=== PATIENT | female | born 1940 | race Caucasian/White ===

== ENCOUNTER 2016-05-16 10:21 | Inpatient (IN) ==
[2016-05-16] MEDS ORDERED: OSELTAMIVIR 75 MG CAPSULE PO STA (10:36)
[2016-05-16] MEDS ORDERED: MEROPENEM 1,000 MG in SODIUM CHLORIDE 0.9% 100 ML IV STA (10:36)
[2016-05-16] MEDS ORDERED: SODIUM CHLORIDE 0.9% 1,000 ML IV STA ×2 (10:36→10:41)
[2016-05-16] MEDS ORDERED: NOREPINEPHRINE 4 MG/4 ML VIAL IV ONE ×2 (10:43→10:46)
[2016-05-16] MEDS ORDERED: OSELTAMIVIR 75 MG CAPSULE ONE (10:49)
[2016-05-16] MEDS ORDERED: MEROPENEM 1,000 MG VIAL IV ONE (10:49)
[2016-05-16] MEDS ORDERED: VANCOMYCIN INJ 750 MG in SODIUM CHLORIDE 0.9% 250 ML IV STA (10:52)
[2016-05-16] MEDS ORDERED: INSULIN REGULAR 100 UNIT/ML IV STA (11:00)
[2016-05-16] MEDS ORDERED: NOREPINEPHRINE 8 MG in SODIUM CHLORIDE 0.9% 242 ML IV SCH (11:00)
--- NOTE | 2016-05-16 11:03 | Emergency Department Note ---
Brando Oneil Jamie, am scribing for, and in the presence of, Apollo Quinonez MD 10:38. Cristiano Oneil Doug C, MD, personally performed the services described in this documentation, ascribed by Kd Michaels in my presence, and it is both accurate and complete . Arrival - Arrival Stated Complaint: SEPTIC/SVT Limitations: No Limitations Source: Patient, EMS, RN Notes Reviewed Time Seen by Provider: 05/16/16 10:36 - History of Present Illness HPI Narrative: Patient 75-year-old white female record and her developed a febrile illness beginning at the end of last week. Patient became increasingly weak and her stated she could not get up and walk this morning when he tried to take her to the emergency room. He called an ambulance and she was taken to [facility] where she was found to have influenza type A positive strep test as well. Patient was hypotensive and tachycardic. He was found to have atrial fib with rapid ventricular response. Patient is still hypotensive and required pressor. Her states she has had a few episodes of nausea and vomiting but has not seen any blood in her stool and she has not had melena. He states no one else at home was been ill that she goes with him to dialysis and sits in the waiting room for 4 hours at a time and thinks he may have contracted her influenza there. Patient is awake and alert and able to provide little in the way of history. Consistency: constant Severity: moderate Allergies/Adverse Reactions: Allergies Allergy/AdvReac Type Severity Reaction Status Date / Time No Known Allergies Allergy Unverified 05/16/16 10:39 Review of System - Review of System 12 point system: reviewed and no additional remarkable complaints except as stated - Review of System Constitutional: Present: fever, weakness Eyes: Absent: vision change Cardiovascular: Absent: chest pain Gastrointestinal: Present: nausea, vomiting. Absent: abdominal pain, diarrhea, constipation Musculoskeletal: Absent: joint swelling Skin: Absent: rash, change in color Neurological: Absent: headache, weakness, numbness, confusion Hematological/Lymphatic: Absent: easy bleeding, easy bruising Medical,Surgical,& Family Hx - Medical History Hematology: History of: Hematologic Cancer (Patient with history of non-Hodgkin' s lymphoma) - Surgical History Surgical History: noncontributory - Family History Family History: noncontributory Exam Vital Signs: Vital Signs Temperature 101 F H 05/16/16 10:59 Pulse Rate 103 H 05/16/16 10:59 Respiratory Rate 20 05/16/16 10:59 Blood Pressure 77/40 05/16/16 10:59 O2 Sat by Pulse Oximetry 92 L 05/16/16 10:56 - General General appearance: in no apparent distress, other (Patient is slow to respond and unable to provide any reliable history.) - Head Head exam: Present: atraumatic, normocephalic, normal inspection - Eye Eye exam: Present: normal appearance, PERRL, EOMI - ENT ENT exam: Present: mucous membranes moist. Absent: normal exam (Posterior pharyngeal erythema) - Neck Neck exam: Present: normal inspection, full ROM. Absent: meningismus - Chest Chest inspection: Present: normal inspection, symmetric chest wall rise - Respiratory Respiratory exam: Present: normal lung sounds bilaterally. Absent: rales - Cardiovascular Cardiovascular exam: Present: normal rhythm, normal heart sounds. Absent: regular rate (Rapid) - Abdominal Exam Abdominal exam: Present: soft, normal bowel sounds. Absent: tenderness - Extremities Exam Extremities exam: Present: normal inspection, full ROM - Neurological Exam Neurological exam: Present: alert, oriented X3, CN II-XII intact, reflexes normal. Absent: motor sensory deficit - Psychiatric Psychiatric exam: Present: normal affect, normal mood - Skin Skin exam: Present: warm, dry, intact, normal color Course Course Narrative: Patient's clinical presentation, laboratory and radiographic findings were discussed with Taryn who is covering the hospitalist service. Patient was seen in the emergency room and evaluated for admission. Low-dose Levophed will be begun. Broad-spectrum antibiotics will be added. Her is aware of her critical condition. Results - Labs Lab Results: I have reviewed the patients labs (Patient's laboratory studies from [facility] were reviewed.) - EKG EKG results: interpreted by CLAUDINED EKG shows: atrial fibrillation (With rapid ventricular response) - Diagnostic Findings Procedure: Chest x-ray: report reviewed by me (Left lower lobe infiltrate noted. ) Disposition Clinical Impression: Influenza, UTI (urinary tract infection), Sepsis Case discussed with: patient, patient's family Disposition: Still a Patient Condition: Critical Time of Disposition: 10:51 Sepsis - Sepsis Classification of Sepsis: Septic Shock - Physical Exam Respiratory exam: rales (Left base) Capillary Refill: Greater Than 3 Seconds Peripheral pulses: Radial (L): 1+, Radial (R): 1+ Cardiovascular exam: tachycardia
[2016-05-16] MEDS ORDERED: INSULIN REGULAR 100 UNIT/ML ONE (11:07)
--- NOTE | 2016-05-16 11:23 | Hospitalist History & Physical ---
Assessment and Plan - Time spent with patient Time spent with patient: Less than 30 minutes (1) Influenza Status: Acute Assessment and plan: We will admit to ICU and initiate isolation precautions. We will start Krupa-flu and provide voulme replacement. Current Visit: Yes (2) UTI (urinary tract infection) Status: Acute Assessment and plan: Continue broad spectrum antibiotic coverage until urine culture results are available. Current Visit: Yes (3) Sepsis Status: Acute Assessment and plan: We will start fluid resusitation for hypotension. Will start pressors in needed. Will repeat labs and CXR in AM. Current Visit: Yes History of Present Illness Chief complaint: "fever, chills, and generalized weakness" History of present illness: This is poor unfortunate elderly female with a very significant past medical history of Non-Hodgkin's Lymphoma, hypertension, and dislipidemia that presents as a lateral transfer from [facility]. She presented to [facility] this morning with a chief complaint of fever, chills, and generalized weakness since Tuesday. When she presented to [facility], she was found to be febrile at 102.0 and in atrial fibrillation with RVR with a heart rate in the 180's. In addition, she was grossly hypotensive with a SBP in the mid-80's. She was given fluid boluses and Amiodarone for rate control. Influenza and strep cultures were obtained; which were both positive. She responded initially to the additional volume, however hypotension returned. She was then transferred to [facility] for continuation of care. Home Medications Medication Instructions Recorded Confirmed Type Canagliflozin [Invokana] 100 mg PO DAILY 05/16/16 05/16/16 History Ferrous Sulfate Tab [Feosol 325 mg PO TID 05/16/16 05/16/16 History Original Tab] Fexofenadine [Ramya] 180 mg PO DAILY PRN 05/16/16 05/16/16 History Folic Acid Tab 1 mg PO BID 05/16/16 05/16/16 History Ibuprofen Tab [Motrin Tab] 600 mg PO Q6H PRN 05/16/16 05/16/16 History Irbesartan 300 mg PO DAILY 05/16/16 05/16/16 History Metformin HCl 1,000 mg PO BID 05/16/16 05/16/16 History Metoprolol Succinate Xl [Toprol Xl] 50 mg PO DAILY 05/16/16 05/16/16 History Multivitamin (Centrum) [Centrum 1 tablet PO DAILY 05/16/16 05/16/16 History Tab] Pioglitazone HCl 15 mg PO DAILY 05/16/16 05/16/16 History Allergies Allergy/AdvReac Type Severity Reaction Status Date / Time No Known Allergies Allergy Unverified 05/16/16 10:39 Medical,Surgical,& Family Hx - Medical History Cardio: History of: Hypertension Endocrine: History of: Dyslipidemia Hematology: History of: Hematologic Cancer (Patient with history of non-Hodgkin' s lymphoma) - Social History Smoking Status: Never smoker Have you smoked in the last 12 months: No Frequency of Alcohol Use: None Type of Drug Use: None Marital Status: Single Lives With:: Spouse Functional capacity: independent ambulation 12 point system: reviewed and no additional remarkable complaints except as stated Exam - Constitutional Vitals: Period Temp Pulse Resp BP Sys/Li Pulse Ox Last 24 Hr 101 F 103-127 16-20 77-77/40-40 92 General appearance: mild distress - Head Head exam: Present: normal inspection, normocephalic, atraumatic - Eye Eye exam: Present: EOMI. Absent: conjunctival injection, scleral icterus, laceration to eyelids Pupils: Present: DANNY, normal accommodation - ENT ENT exam: Present: normal exam - Neck Neck exam: Present: normal inspection. Absent: lymphadenopathy, meningismus, tenderness, thyromegaly - Respiratory Respiratory exam: Present: decreased breath sounds - Cardiovascular Cardiovascular exam: Present: irregular rhythm. Absent: gallop, rubs, systolic murmur, tachycardia - GI/Abdominal GI/Abdominal exam: Present: normal bowel sounds, soft. Absent: distended, firm , tenderness - Extremities Exam Extremities exam: Present: normal inspection - Back Exam Back exam: Present: normal inspection - Neurological Exam Neurological exam: Present: alert, oriented X3, CN II-XII intact - Psychiatric Psychiatric exam: Present: normal affect - Skin Skin exam: Present: dry, pallor Sepsis - Sepsis Classification of Sepsis: Sepsis Possible / Suspected infection from: UTI/Influenza - Physical Exam Respiratory exam: decreased breath sounds Cardiovascular exam: irregular rhythm
[2016-05-16 11:50] LABS: Blood Urea Nitrogen 41 MG/DL (7-18); Glucose 359 MG/DL (74-106); Magnesium 1.5 MG/DL (1.8-2.4); Osmolality,Calculated 311.7 MOS/KG (273-304); Potassium 3.6 MMOL/L (3.5-5.1); Sodium 145 MMOL/L (136-145)
[2016-05-16 11:51] LABS: Troponin I Only 0.386 NG/ML (0.00-0.045)
--- NOTE | 2016-05-16 11:59 | XRay Report ---
Portable chest Date: 05/16/2016 Clinical history: Shortness of breath, fever Comparison: 05/16/2016 Technique: Portable AP sitting chest Findings: The heart is borderline in size. Probably chronic scarring with symmetric pleural thickening at the lung apices. Additional parenchymal findings especially at the right lung base and in the left mid to lower lung zone. Ill-defined densities are noted. Post operative findings in the left upper quadrant with degenerative changes. Osteopenia. Impression: Atelectasis/infiltration especially in the left mid lower lung zone and at the right lung base with chronic scarring. Ill-defined indeterminate densities are noted and follow-up chest x-ray is recommended. PROCEDURE INTERPRETED AT [facility] DEPARTMENT OF RADIOLOGY Final Report Signed by: Dr. Berna Portillo
[2016-05-16] MEDS ORDERED: DEXTROSE 50% 25 GM/50 ML VIAL IV PRN (12:27)
[2016-05-16] MEDS ORDERED: ONDANSETRON 4 MG/2 ML VIAL IV PRN (12:27)
[2016-05-16] MEDS ORDERED: MORPHINE 2 MG/1 ML SYRINGE IV PRN (12:27)
[2016-05-16] MEDS ORDERED: GLUCAGON 1 MG VIAL IM PRN (12:27)
[2016-05-16] MEDS ORDERED: VANCOMYCIN INJ 750 MG in SODIUM CHLORIDE 0.9% 250 ML IV ONE (12:27)
[2016-05-16 12:48] LABS: Risk Ratio 3.33; VLDL CHOLESTEROL 13.8 MG/DL
[2016-05-16] MEDS: ENOXAPARIN 30 MG/0.3 ML SYRINGE SUBCUT SCH (13:08)
[2016-05-16] MEDS: SODIUM CHLORIDE 0.9% 1,000 ML IV SCH (13:10)
[2016-05-16] MEDS: MEROPENEM 500 MG in SODIUM CHLORIDE 0.9% 100 ML IV SCH (13:12)
[2016-05-16] MEDS: NOREPINEPHRINE 8 MG in SODIUM CHLORIDE 0.9% 242 ML IV SCH (13:13)
[2016-05-16] MEDS: INSULIN REGULAR 100 UNIT/ML SUBCUT SCH ×2 (13:35→18:22)
[2016-05-16] MEDS: PANTOPRAZOLE 40 MG VIAL IV SCH (13:37)
[2016-05-16] MEDS ORDERED: VANCOMYCIN INJ 1,000 MG in SODIUM CHLORIDE 0.9% 250 ML IV SCH (14:00)
[2016-05-16] MEDS: ALBUTEROL/IPRATROPIUM 3 ML NEB RESP TX SCH ×2 (14:39→19:54)
[2016-05-16] MEDS ORDERED: POTASSIUM CHLORIDE 20 MEQ/15 ML UDCUP PO ONE (20:51)
[2016-05-16] MEDS ORDERED: MAGNESIUM SULF RIDER 2 GM in PREMIX 1 EACH IV ONE (20:51)
[2016-05-16] MEDS: ACETAMINOPHEN 325 MG/10.15 ML UDCUP PO PRN (21:19)
[2016-05-16] MEDS: OSELTAMIVIR 75 MG CAPSULE PO SCH (21:20)
[2016-05-17] MEDS: ALBUTEROL/IPRATROPIUM 3 ML NEB RESP TX SCH ×4 (00:08→19:59)
[2016-05-17] MEDS: SODIUM CHLORIDE 0.9% 1,000 ML IV SCH ×6 (00:32→22:36)
[2016-05-17] MEDS: INSULIN REGULAR 100 UNIT/ML SUBCUT SCH ×4 (01:29→18:35)
[2016-05-17] MEDS: MEROPENEM 500 MG in SODIUM CHLORIDE 0.9% 100 ML IV SCH ×2 (01:30→14:13)
[2016-05-17] MEDS: NOREPINEPHRINE 8 MG in SODIUM CHLORIDE 0.9% 242 ML IV SCH ×2 (01:47→16:48)
[2016-05-17 03:13] LABS: Apearance,Urine SlightlyCloudy (Clear); Bilirubin,Urine Negative (Negative); Blood, Urine Moderate mg/dL (Negative); Glucose,Urine (UA) 50 mg/dL (Negative); Ketones,Urine Negative (Negative); Nitrite,Urine Negative (Negative); Protein,Urine 100 MG/DL; RBC,Urine 19 /HPF (0-4); Renal Epithelial Cells,Urine Occasional /HPF (<1); Squamous Epithelial Cell,Urine Occasional /HPF (0-10); Urine Color Yellow (Yellow); Urine Specific Gravity 1.005 (1.001-1.035); WBC,Urine 158 /HPF (0-6)
[2016-05-17 03:14] LABS: Urine Urobilinogen < 2.0 EU/DL (0.2-1.0)
[2016-05-17 05:54] LABS: Hemoglobin 9.6 GM/DL (12.0-16.0); Lymphocytes # 0.7 10*3/uL (1.4-4.0); Lymphocytes % 65.7 % (21.3-54.2); Mean Corpuscular Hemoglobin 32 PG (27-34); Mean Corpuscular Volume 98.4 FL (87-102); Mean Platelet Volume 11.3 FL (9.6-12.0); Monocytes # 0.1 10*3/uL (0.11-0.8); Monocytes % 7.1 % (1.7-12.7); NRBC # 0.05 10*3/uL; Neutrophils # 0.3 10*3/uL (1.4-7.4); Neutrophils % 27.2 % (38.7-73.9); Platelet Count 130 T/CUMM (130-400); Red Blood Count 3.05 MC/CUMM (3.8-5.5); Red Cell Distribution Width 15.9 % (9.3-17.3)
[2016-05-17 06:24] LABS: Band Neutrophils 2 % (0-10); Lymphocytes 68 % (20-55); Nucleated Red Blood Cells 10 (0-5); Segmented Neutrophils 22 % (50-85); Total Cells Counted 100
[2016-05-17 06:25] LABS: Hypochromasia 1+
[2016-05-17 06:26] LABS: Burr Cells Few; Macrocytosis Slight; Platelet Estimate Adequate
[2016-05-17 06:36] LABS: Calcium 6.7 MG/DL (8.5-10.1); Magnesium 2.5 MG/DL (1.8-2.4); Osmolality,Calculated 317.4 MOS/KG (273-304); Potassium 3.9 MMOL/L (3.5-5.1); Thyroid Stimulating Hormone 1.36 uIU/ml (0.358-3.74)
[2016-05-17] MEDS: OSELTAMIVIR 75 MG CAPSULE PO SCH ×2 (08:33→21:02)
--- NOTE | 2016-05-17 08:38 | XRay Report ---
History: Shortness of breath Date: 05/17/2016 Study: Chest x-ray AP portable Comparison exam: 05/16/2016 The cardiac silhouette is upper normal in size. There is no mediastinal mass. The pulmonary vasculature is not grossly engorged. There is some patchy and strandy atelectasis/infiltrate in the left mid to lower lung more so than the right lower lung. The left lung infiltrate is slightly increased. There may be some minimal left pleural effusion. Osseous structures are unchanged. Impression: Mildly increased atelectasis/infiltrate in the left mid to lower lung compared to the previous day. Otherwise unchanged PROCEDURE INTERPRETED AT [facility] DEPARTMENT OF RADIOLOGY Final Report Signed by: Dr. Jacqueline Heath
--- NOTE | 2016-05-17 09:34 | Hospitalist Progress Note ---
Assessment and Plan (1) Pneumonia and influenza Status: Acute Assessment and plan: The patient was admitted to the hospital with pneumonia of the left lung superimposed upon influenza. The patient continues on IV antibiotics with meropenem and linezolid. We will recheck electrolytes and chest x-ray in the morning. The patient's diet will advance to diabetic. I am going to add Lantus to the patient's sliding scale insulin to improve glucose control. Current Visit: Yes (2) Influenza Status: Acute Current Visit: Yes (3) Sepsis Status: Acute Current Visit: Yes Hospitalist: Subjective Interval history: This is a 75-year-old lady admitted on Tuesday evening with viral infection and sore throat. The patient was found to have flu swab and streptococcal swab of the throat consistent with influenza a and streptococcal infection. The patient has been having cough with sputum production and fever with generalized body aching consistent with flu. The patient worsened on the date of admission to the hospital was brought to the emergency room. The patient has stabilized and begun to feel better today after an evening of antibiotics with meropenem and vancomycin as well as beta agonist nebulized breathing therapies. Creatinine has increased from 2.1-2.4 saw going to discontinue vancomycin and start the patient on linezolid. Exam - Constitutional Vitals: Period Temp Pulse Resp BP Sys/Li Pulse Ox Last 24 Hr 99.7 F-101.9 F 98-144 8-36 67-156/35-99 81-100 General appearance: mild distress - Respiratory Respiratory exam: Present: rhonchi (Left mid lung field greater than right) - Cardiovascular Cardiovascular exam: Present: regular rate and rhythm - GI/Abdominal GI/Abdominal exam: Present: normal bowel sounds Results - Labs CBC & BMP: 05/17/16 05:18 05/17/16 05:18 Lab Results: I have reviewed the past 24 hour labs - Diagnostic Findings Procedure: Chest x-ray: image reviewed by me (Chest x-ray shows worsening atelectasis of the left lung)
[2016-05-17] MEDS: LINEZOLID INJ 600 MG in PREMIX 1 EACH IV SCH ×2 (11:15→21:02)
[2016-05-17] MEDS: DESITIN 4OZ/NYSTATIN 15 GRAM MIXTURE PASTE TOP SCH ×2 (11:34→21:00)
[2016-05-17] MEDS: PANTOPRAZOLE 40 MG VIAL IV SCH (12:40)
[2016-05-17] MEDS: ENOXAPARIN 30 MG/0.3 ML SYRINGE SUBCUT SCH (14:13)
--- NOTE | 2016-05-17 16:05 | ECHO Report ---
[place] Exam Date: 05/17/2016 09:08 Referring Physician: Technologist: Mikhail FERNANDO Age: 75 Ht (in): Wt (lb): Gender: F Exam Location: [facility] Echo Indications: SOB, Influenza, UTI, Sepsis BP: / HR: Rhythm: Sinus Technical Quality: IMPRESSIONS The patient is tachycardic in the 130-140 range which makes interpretation more challenging. Left ventricular ejection fraction is estimated at approximately 50 %. Mild concentric left ventricular hypertrophy. Mild bilateral atrial enlargement. Mild mitral regurgitation. Mild tricuspid regurgitation. MEASUREMENTS (Male / Female) Normal Values 2D ECHO LV Diastolic Diameter PLAX 3.2 cm 4.2 - 5.9 / 3.9 - 5.3 cm LV Systolic Diameter PLAX 1.8 cm LV Fractional Shortening PLAX 43.2 % IVS Diastolic Thickness 1.1 cm 0.6 - 1.0 / 0.6 - 0.9 cm LVPW Diastolic Thickness 1.1 cm 0.6 - 1.0 / 0.6 - 0.9 cm RV Internal Dim ED PLAX 2.9 cm Aortic Root Diameter 2.2 cm LA Systolic Diameter LX 3.0 cm 3.0 - 4.0 / 2.7 - 3.8 cm DOPPLER TR Peak Velocity 288.0 cm/s TR Peak Gradient 33.2 mmHg FINDINGS Left Ventricle Mild concentric left ventricular hypertrophy with diastolic dysfunction. Left ventricular ejection fraction is estimated at 50 %. Right Ventricle Mildly increased right ventricular size. Right Atrium The right atrium is mildly enlarged. Left Atrium The left atrium is mildly enlarged. Mitral Valve Mildly thickened mitral valve with mild mitral regurgitation. Aortic Valve Aortic valve sclerosis without stenosis or regurgitation. Tricuspid Valve Morphologically normal tricuspid valve. Mild tricuspid valve regurgitation. Tricuspid regurgitation velocities suggest a PAP of 33.2 mmHg + RAP. Pulmonic Valve Morphologically normal pulmonic valve. Pericardium No pericardial effusion. Aorta Normal size aortic root and proximal ascending aorta. Artis Hopson (Electronically Signed) Final Date: 17 May 2016 16:04
[2016-05-17] MEDS: ACETAMINOPHEN 325 MG/10.15 ML UDCUP PO PRN (21:01)
[2016-05-17] MEDS: INSULIN GLARGINE 100 UNIT/ML SUBCUT SCH (21:13)
[2016-05-18] MEDS: ALBUTEROL/IPRATROPIUM 3 ML NEB RESP TX SCH ×4 (02:00→19:55)
[2016-05-18] MEDS: MEROPENEM 500 MG in SODIUM CHLORIDE 0.9% 100 ML IV SCH ×2 (02:23→14:00)
[2016-05-18] MEDS: SODIUM CHLORIDE 0.9% 1,000 ML IV SCH ×4 (04:39→20:27)
[2016-05-18] MEDS: INSULIN REGULAR 100 UNIT/ML SUBCUT SCH ×4 (05:58→17:46)
--- NOTE | 2016-05-18 09:10 | Physician Query Form ---
CLICK EDIT DOCUMENT TO SELECT QUERY ANSWER --> OK --> SIGN Prachi Germain RN, CCDS Certified Clinical Radiation Control Health Physicist W) [phone] (f) [phone] [email or web address] PROVIDERS: Make your selection(s) from the choices in EACH section by typing an "x" and enter comments in the comment section. Please use your independent medical judgment in providing your response. This request does not imply that any particular answer is desired or expected. CLINICAL INDICATORS: (Providers should not edit this section) The below diagnosis was documented in the record, but is not consistently noted in subsequent documentation. The medical record indicates that the patient was admitted with Sepsis, UTI is mentioned in the ER, Urine WBC of 158#, Urine Leukocytes "Moderate" and the patient is on antibiotics. In your clinical opinion can you please clarify if the UTI was ? Diagnosis: UTI Please clarify the following: ( ) The above diagnosis was monitored, evaluated, and/or treated and is a confirmed diagnosis ( X) The above diagnosis was ruled out ( ) The above diagnosis is still a likely, suspected, probable diagnosis ( ) Other, please specify: ( ) Clinically unable to determine COMMENTS: Use of terms such as suspected, likely, or probable (associated with a specific diagnosis that is being evaluated, monitored, or treated as if it exists) are acceptable and can be restated in the discharge summary if not ruled out. MTDD
--- NOTE | 2016-05-18 09:11 | Physician Query Form ---
CLICK EDIT DOCUMENT TO SELECT QUERY ANSWER --> OK --> SIGN Prachi Germain RN, CCDS Certified Clinical Tipple Worker W) [phone] (f) [phone] [email or web address] PROVIDERS: Make your selection(s) from the choices in EACH section by typing an "x" and enter comments in the comment section. Please use your independent medical judgment in providing your response. This request does not imply that any particular answer is desired or expected. CLINICAL INDICATORS: (Providers should not edit this section) The medical record indicates that the patient was admitted with Sepsis, on the : creatinine of 2.10# that has increased to 2.40# on the and GFR of 21 # that has decreased to 19# on the . [also "going to discontinue vancomycin and start the patient on linezolid"] Clarify which of the following most accurately represents the patient's renal status: ( ) Acute kidney injury (non-traumatic) ( ) Acute renal failure ( ) Acute renal failure with underlying Chronic Kidney Disease (CKD) - please provide stage below ( ) Acute renal failure with pathological renal lesion ( ) Acute renal failure with necrosis ( ) tubular ( ) medullary ( ) cortical ( ) CKD - please provide stage below ( ) End Stage Renal Disease ( ) Acute interstitial nephritis ( ) Hepatorenal syndrome ( ) Other, please specify: ( ) Clinically unable to determine Chronic Kidney Disease Stages Source: National Kidney Disease Foundation ( ) Stage I (eGFR > or = 90) ( ) Stage II (eGFR 60 - 89) ( ) Stage III (eGFR 30 - 59) ( ) Stage IV (eGFR 15 - 29) ( ) Stage V (eGFR < 15 or dialysis) COMMENTS: Use of terms such as suspected, likely, or probable (associated with a specific diagnosis that is being evaluated, monitored, or treated as if it exists) are acceptable and can be restated in the discharge summary if not ruled out. MTDD
[2016-05-18] MEDS: DESITIN 4OZ/NYSTATIN 15 GRAM MIXTURE PASTE TOP SCH ×2 (09:18→20:11)
[2016-05-18] MEDS: OSELTAMIVIR 75 MG CAPSULE PO SCH ×2 (09:18→20:08)
[2016-05-18] MEDS: LINEZOLID INJ 600 MG in PREMIX 1 EACH IV SCH ×2 (10:15→21:17)
[2016-05-18] MEDS: PANTOPRAZOLE 40 MG VIAL IV SCH (12:43)
[2016-05-18] MEDS: ENOXAPARIN 30 MG/0.3 ML SYRINGE SUBCUT SCH (12:43)
--- NOTE | 2016-05-18 14:30 | Hospitalist Progress Note ---
Assessment and Plan - Time spent with patient Time spent with patient: Greater than 30 minutes (1) Pneumonia and influenza Status: Acute Assessment and plan: will get CT chest to further evaluate abnormal x-ray. Continue with linezolid and meropenem. May need to consult Pulmonary. Current Visit: Yes (2) Septic shock Status: Acute Assessment and plan: the patient was on vasopressor up to yesterday. Source of infection likely from pneumonia. Off pressors now. Current Visit: Yes (3) Influenza Status: Acute Assessment and plan: Continue with Tamiflu for 5 days Current Visit: Yes (4) Neutropenia Status: Acute Assessment and plan: repeat complete blood count and if neutrophils still significantly lower than 0.5 L, consider Neupogen, and then consider neutropenic precautions Current Visit: Yes (5) Thrombocytopenia Status: Acute Assessment and plan: likely secondary to sepsis. Discontinue Lovenox. No bleeding episode. Current Visit: Yes Hospitalist: Subjective Interval history: Patient seen and examined. Neutropenia of 0.3 noted. White count of 1 yesterday noted. It seems patient must have had neutropenic fever. She was actually in septic shock considering that she was on Levophed up to yesterday. Chest x-ray revealed possible left lower lobe infiltrate concerning for pneumonia. We are going to get CAT scan without contrast to further evaluate. She has organ dysfunction dysfunction with elevated creatinine. She is being treated for flu. Get urine legionella and urine strep antigen. She is on adequate antibiotics with linezolid and meropenem. Blood cultures have remained negative. Will send for sputum culture. Will likely consult ID, hematology when all these are back jessica if WBC remains very low Exam - Constitutional Vitals: Period Temp Pulse Resp BP Sys/Li Pulse Ox Last 24 Hr 98.3 F-100.5 F 80-148 18-31 67-135/39-90 90-100 General appearance: no normal weight - Head Head exam: Present: normocephalic, atraumatic - Eye Eye exam: Present: EOMI Pupils: Present: DANNY - Respiratory Respiratory exam: Present: rhonchi (Bilateral rhonchi) - Cardiovascular Cardiovascular exam: Absent: diastolic murmur, JVD, systolic murmur - GI/Abdominal GI/Abdominal exam: Present: normal bowel sounds. Absent: ascites - Extremities Exam Extremities exam: Absent: normal capillary refill, edema - Neurological Exam Neurological exam: Present: alert, oriented X3 - Psychiatric Psychiatric exam: Present: normal affect - Skin Skin exam: Present: normal color Results - Labs CBC & BMP: 05/18/16 14:29 05/17/16 05:18 Lab Results: I have reviewed the past 24 hour labs
[2016-05-18 14:44] LABS: Basophils % 0.4 % (0.0-0.8); Eosinophils % 0.4 % (0.00-10.9); Hematocrit 22.6 VOL% (35.7-47.0); Hemoglobin 7.5 GM/DL (12.0-16.0); Immature Granulocytes Absolute 0.05 #; Lymphocytes # 0.6 10*3/uL (1.4-4.0); Lymphocytes % 23.1 % (21.3-54.2); Mean Corpuscular HGB Conc 33.2 GM/DL (32-36); Mean Corpuscular Hemoglobin 31 PG (27-34); Mean Corpuscular Volume 94.6 FL (87-102); Mean Platelet Volume 11.9 FL (9.6-12.0); Monocytes # 0.2 10*3/uL (0.11-0.8); Monocytes % 7.5 % (1.7-12.7); NRBC # 0.41 10*3/uL; Neutrophils # 1.7 10*3/uL (1.4-7.4); Neutrophils % 66.6 % (38.7-73.9); Platelet Count 63 T/CUMM (130-400); Red Blood Count 2.39 MC/CUMM (3.8-5.5); Red Cell Distribution Width 16.6 % (9.3-17.3); White Blood Count 2.6 T/CUMM (4-12)
[2016-05-18] MEDS: NOREPINEPHRINE 8 MG in SODIUM CHLORIDE 0.9% 242 ML IV SCH (14:44)
[2016-05-18 15:19] LABS: Band Neutrophils 1 % (0-10); Lymphocytes 37 % (20-55); Metamyelocytes 1 %; Nucleated Red Blood Cells 12 (0-5); Segmented Neutrophils 54 % (50-85); Total Cells Counted 100
[2016-05-18 15:20] LABS: Platelet Estimate Decreased; Polychromasia Few
--- NOTE | 2016-05-18 15:38 | CT Report ---
Referring physician: Tanner Mills MD EXAM: CT chest without contrast DATE: 05/18/2016 COMPARISON: Chest x-ray 05/17/2016 REASON: Shortness of breath, evaluate for pneumonia TECHNIQUE: Axial images of the chest were obtained without the use of IV contrast. Coronal and sagittal reformatted images were also provided. Total DLP is 156.10 mGy*cm. FINDINGS: The heart is minimally enlarged with diffuse arterial calcifications including coronary artery calcifications. Limited evaluation of the vasculature and no without contrast. At least some of the nodes may be enlarged. 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 Probable vascular calculations in the area the pancreas with limited evaluation of the upper abdomen. Small bilateral pleural effusions with diffuse pleural calcification posteriorly in the right hemithorax. Chronic scarring at the lung apices. More extensive dense consolidation in the lower lobes, especially the left. Additional multifocal groundglass opacities in the left upper lobe/lingula with minimal atelectasis/infiltration right upper lobe and right middle lobe. There is fluid in the fissures. IMPRESSION: Findings which can be seen with bilateral pneumonia especially in the lower lobes with small pleural effusions. It is difficult to exclude underlying pathology/masses with these findings. Small loculated appearing pleural effusions. Diffuse pleural calcifications posteriorly in the right hemithorax which can be seen with scarring, asbestosis, etc. At least minimal ascites with prior splenectomy and limited evaluation of the upper abdomen. Minimal cardiomegaly with coronary artery calcifications. Follow-up recommended. The CT exam was performed using one or more of the following dose reduction techniques: Automated exposure control and adjustment of the mA and/or kV according to patient size. PROCEDURE INTERPRETED AT [facility] DEPARTMENT OF RADIOLOGY Final Report Signed by: Dr. Berna Portillo
[2016-05-18] MEDS: INSULIN GLARGINE 100 UNIT/ML SUBCUT SCH (20:11)
[2016-05-18] MEDS: ACETAMINOPHEN 325 MG/10.15 ML UDCUP PO PRN (22:02)
--- NOTE | 2016-05-18 22:11 | EKG Report ---
Stationary ECG Study 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
[2016-05-18] MEDS: DILTIAZEM INJ 100 MG in SODIUM CHLORIDE 0.9% 100 ML IV SCH (22:15)
[2016-05-19] MEDS: INSULIN REGULAR 100 UNIT/ML SUBCUT SCH ×4 (00:09→18:51)
[2016-05-19] MEDS: ALBUTEROL/IPRATROPIUM 3 ML NEB RESP TX SCH ×4 (00:33→19:53)
[2016-05-19] MEDS: SODIUM CHLORIDE 0.9% 1,000 ML IV SCH ×3 (00:47→23:05)
[2016-05-19] MEDS: MEROPENEM 500 MG in SODIUM CHLORIDE 0.9% 100 ML IV SCH ×2 (02:11→13:53)
[2016-05-19 08:56] LABS: Eosinophils # 0.1 10*3/uL (0.0-0.87); Eosinophils % 2.6 % (0.00-10.9); Hematocrit 22.2 VOL% (35.7-47.0); Hemoglobin 7.5 GM/DL (12.0-16.0); Immature Granulocytes % 5.3 %; Immature Granulocytes Absolute 0.12 #; Lymphocytes # 0.5 10*3/uL (1.4-4.0); Lymphocytes % 19.7 % (21.3-54.2); Mean Corpuscular HGB Conc 33.8 GM/DL (32-36); Mean Corpuscular Hemoglobin 31 PG (27-34); Mean Corpuscular Volume 92.9 FL (87-102); Mean Platelet Volume 12.5 FL (9.6-12.0); Monocytes # 0.1 10*3/uL (0.11-0.8); Monocytes % 6.1 % (1.7-12.7); NRBC # 0.36 10*3/uL; Neutrophils # 1.5 10*3/uL (1.4-7.4); Neutrophils % 66.3 % (38.7-73.9); Red Blood Count 2.39 MC/CUMM (3.8-5.5); Red Cell Distribution Width 16.4 % (9.3-17.3); White Blood Count 2.3 T/CUMM (4-12)
[2016-05-19 08:57] LABS: Platelet Count 58 T/CUMM (130-400)
[2016-05-19 09:19] LABS: Band Neutrophils 18 % (0-10); Hypochromasia 1+; Lymphocytes 12 % (20-55); Nucleated Red Blood Cells 4 (0-5); Platelet Estimate Decreased; Segmented Neutrophils 66 % (50-85); Total Cells Counted 100
[2016-05-19 09:20] LABS: Calcium 6.4 MG/DL (8.5-10.1); Magnesium 1.9 MG/DL (1.8-2.4); Osmolality,Calculated 305.6 MOS/KG (273-304); Potassium 3.1 MMOL/L (3.5-5.1)
[2016-05-19] MEDS: LINEZOLID INJ 600 MG in PREMIX 1 EACH IV SCH ×2 (11:13→23:00)
--- NOTE | 2016-05-19 12:45 | Hospitalist Progress Note ---
Assessment and Plan (1) Pneumonia and influenza Status: Acute Assessment and plan: will get CT chest to further evaluate abnormal x-ray. Continue with linezolid and meropenem. May need to consult Pulmonary. Current Visit: Yes (2) Septic shock Status: Acute Assessment and plan: the patient was on vasopressor up to yesterday. Source of infection likely from pneumonia. Off pressors now. Current Visit: Yes (3) Influenza Status: Acute Assessment and plan: Continue with Tamiflu for 5 days Current Visit: Yes (4) Neutropenia Status: Acute Assessment and plan: repeat complete blood count and if neutrophils still significantly lower than 0.5 L, consider Neupogen, and then consider neutropenic precautions Current Visit: Yes (5) Thrombocytopenia Status: Acute Assessment and plan: likely secondary to sepsis. Discontinue Lovenox. No bleeding episode. Current Visit: Yes Hospitalist: Subjective Interval history: Patient was seen and examined. Brushing her teeth in bed Clinically she looks better. She is still coughing. Reviewed results of patient's CT scan report and labs Denies chest pain or shortness of breath. I have consulted infectious disease and hematology. Exam - Constitutional Vitals: Period Temp Pulse Resp BP Sys/Li Pulse Ox Last 24 Hr 98.5 F-100.0 F 89-139 16-33 83-162/50-88 89-98 Results - Labs CBC & BMP: 05/19/16 08:38 05/19/16 08:38
[2016-05-19] MEDS: PANTOPRAZOLE 40 MG VIAL IV SCH (13:48)
[2016-05-19] MEDS: DESITIN 4OZ/NYSTATIN 15 GRAM MIXTURE PASTE TOP SCH ×2 (14:01→22:00)
[2016-05-19] MEDS ORDERED: SODIUM CHLORIDE 0.9% 250 ML IV PRN (17:16)
--- NOTE | 2016-05-19 17:19 | Hematology Consult ---
Assessment and Plan (1) Pancytopenia Status: Acute Assessment and plan: Her pancytopenia appears to be related to sepsis. I will order a full DIC panel and also check B12 and folate levels. She has not had a liver function panel checked since she has been admitted so I will add this to her labs. We will give her 2 units of blood today since her hemoglobin is less than 8 and she is still fairly symptomatically requiring supplemental oxygen. She needs to watch closely for volume overload. I'll also give her a dose of Neupogen to see if we can increase her neutrophil count. At this point the only treatment to be done is to treat the underlying illness. She is on Zyvox and Merrem. I will be out of town the next 4 days but if there is any questions from a hematology standpoint please feel free to call the on-call utility worker. Current Visit: Yes (2) Pneumonia and influenza Status: Acute Current Visit: Yes (3) Sepsis Status: Acute Current Visit: Yes (4) Septic shock Status: Acute Current Visit: Yes History of Present Illness - Consult Narrative History of present illness: Ms. Aragon is a 75 year old female who was admitted with bilateral pneumonia and what appeared to be sepsis. She was hypotensive for quite a while. She was pancytopenic on admission. Her neutrophil count has improved some but her platelet counts have decreased further. Her neutrophil count remains above 1000 today. Her hemoglobin is around 7.5. She is covered with Zyvox and Merrem. Her cultures are no growth. It appears that her pancytopenia is most likely secondary to her sepsis. CC: Tanner Mills MD - Home Medications and Allergies Home Medications: Home Medications Medication Instructions Recorded Confirmed Type Canagliflozin [Invokana] 100 mg PO DAILY 05/16/16 05/16/16 History Ferrous Sulfate Tab [Feosol 325 mg PO TID 05/16/16 05/16/16 History Original Tab] Fexofenadine [Ramya] 180 mg PO DAILY PRN 05/16/16 05/16/16 History Folic Acid Tab 1 mg PO BID 05/16/16 05/16/16 History Ibuprofen Tab [Motrin Tab] 600 mg PO Q6H PRN 05/16/16 05/16/16 History Irbesartan 300 mg PO DAILY 05/16/16 05/16/16 History Metformin HCl 1,000 mg PO BID 05/16/16 05/16/16 History Metoprolol Succinate Xl [Toprol Xl] 50 mg PO DAILY 05/16/16 05/16/16 History Multivitamin (Centrum) [Centrum 1 tablet PO DAILY 05/16/16 05/16/16 History Tab] Pioglitazone HCl 15 mg PO DAILY 05/16/16 05/16/16 History Allergies/Adverse Reactions: Allergies Allergy/AdvReac Type Severity Reaction Status Date / Time No Known Allergies Allergy Unverified 05/16/16 10:39 Medical,Surgical,& Family Hx - Medical History Cardio: History of: Hypertension HEENT: History of: Dental Problems (HAVE UPPER DENTAL IMPLANTS) Endocrine: History of: Dyslipidemia Respiratory: History of: Bronchitis, Pneumonia Genitourinary: History of: Recurring Urinary Tract Infections Musculoskeletal: No history of: Amputation Hematology: History of: Hematologic Cancer (Patient with history of non-Hodgkin' s lymphoma) Other: History of: Cancer - Surgical History Abdominal Surgeries: Patient denies: Abdominal Surgery - Family History Family History: Reports;: Family Heart Disease (FATHER AND MOTHER) - Social History Smoking Status: Never smoker Frequency of Alcohol Use: None Type of Drug Use: None 12 point system: reviewed and no additional remarkable complaints except as stated - Constitutional Constitutional: Present: fatigue, malaise - Cardiovascular Cardiovascular ROS IM: Absent: edema, palpitations - Respiratory Respiratory: Present: dyspnea - Gastrointestinal Gastrointestinal: Absent: nausea Exam - Constitutional Vitals: Period Temp Pulse Resp BP Sys/Li Pulse Ox Last 24 Hr 98.5 F-99.8 F 89-139 22-33 83-162/57-88 89-98 General appearance: mild distress - Head Head Exam: Present: normocephalic, atraumatic - Eye Eye Exam: Present: EOMI Pupils: Present: PERRL - ENT ENT exam: Present: normal exam, normal oropharynx - Neck Neck exam: Absent: lymphadenopathy, thyromegaly - Respiratory Respiratory exam: Present: CTAB. Absent: decreased breath sounds, wheezes - Cardiovascular Cardiovascular exam: Present: tachycardia. Absent: JVD, RRR - GI/Abdominal GI/Abdominal exam: Present: soft. Absent: ascites, distended, mass - Neurological Exam Neurological exam: Present: alert, oriented X3 - Psychiatric Psychiatric exam: Present: normal affect, anxious - Skin Skin exam: Present: warm, dry Results - Labs CBC & BMP: 05/19/16 08:38 05/19/16 08:38 Lab Results: I have reviewed the past 24 hour labs - Diagnostic Findings Procedure: CT - chest: report reviewed by me
[2016-05-19] MEDS ORDERED: FUROSEMIDE 40 MG/4 ML VIAL IV ONE (17:26)
[2016-05-19 17:57] LABS: PT Patient Result 11.1 SECS
[2016-05-19] MEDS ORDERED: FILGRASTIM-SNDZ 300 MCG/0.5 ML SYRINGE SUBCUT ONE (18:00)
[2016-05-19 18:11] LABS: Bilirubin,Direct 0.2 MG/DL (0.0-0.20); Bilirubin,Indirect 0.5 MG/DL (0.0-1.0); Bilirubin,Total 0.7 MG/DL (0.2-1.0); Total Protein 4.7 G/DL (6.4-8.3)
[2016-05-19 18:29] LABS: Folate > 24.0 NG/ML (5.4-24.0); Vitamin B12 > 2000 PG/ML (211-911)
[2016-05-19] MEDS: ZALEPLON 5 MG CAPSULE PO PRN ×2 (23:03→23:20)
[2016-05-19] MEDS: CLORAZEPATE 7.5 MG TABLET PO PRN (23:03)
[2016-05-19] MEDS: INSULIN GLARGINE 100 UNIT/ML SUBCUT SCH (23:05)
[2016-05-19] MEDS: DILTIAZEM INJ 100 MG in SODIUM CHLORIDE 0.9% 100 ML IV SCH (23:09)
[2016-05-20] MEDS: ALBUTEROL/IPRATROPIUM 3 ML NEB RESP TX SCH ×4 (00:49→20:43)
[2016-05-20] MEDS: INSULIN REGULAR 100 UNIT/ML SUBCUT SCH ×3 (01:11→12:28)
[2016-05-20] MEDS: MEROPENEM 500 MG in SODIUM CHLORIDE 0.9% 100 ML IV SCH ×2 (01:12→14:25)
[2016-05-20] MEDS ORDERED: FUROSEMIDE 40 MG/4 ML VIAL IV ONE (01:30)
[2016-05-20 07:07] LABS: Basophils # 0.1 10*3/uL (0.0-0.2); Basophils % 1.4 % (0.0-0.8); Eosinophils % 0.8 % (0.00-10.9); Hematocrit 32.8 VOL% (35.7-47.0); Hemoglobin 11.5 GM/DL (12.0-16.0); Immature Granulocytes Absolute 0.11 #; Lymphocytes # 0.7 10*3/uL (1.4-4.0); Lymphocytes % 19.7 % (21.3-54.2); Mean Corpuscular HGB Conc 35.1 GM/DL (32-36); Mean Corpuscular Hemoglobin 31 PG (27-34); Mean Corpuscular Volume 88.4 FL (87-102); Mean Platelet Volume 13.1 FL (9.6-12.0); Monocytes # 0.4 10*3/uL (0.11-0.8); Monocytes % 11.9 % (1.7-12.7); NRBC # 0.26 10*3/uL; Neutrophils # 2.3 10*3/uL (1.4-7.4); Neutrophils % 63.2 % (38.7-73.9); Platelet Count 61 T/CUMM (130-400); Red Blood Count 3.71 MC/CUMM (3.8-5.5); Red Cell Distribution Width 15.2 % (9.3-17.3); White Blood Count 3.6 T/CUMM (4-12)
[2016-05-20 07:29] LABS: Band Neutrophils 3 % (0-10); Eosinophils 1 % (0-10); Lymphocytes 23 % (20-55); Nucleated Red Blood Cells 3 (0-5); Segmented Neutrophils 62 % (50-85); Total Cells Counted 100
[2016-05-20 07:30] LABS: Hypochromasia 1+; Ovalocytes Slight; Platelet Estimate Decreased
[2016-05-20 07:45] LABS: Calcium 7.3 MG/DL (8.5-10.1); Magnesium 1.5 MG/DL (1.8-2.4); Potassium 2.8 MMOL/L (3.5-5.1)
[2016-05-20] MEDS: OSELTAMIVIR 30 MG CAPSULE PO SCH (09:42)
[2016-05-20] MEDS: LINEZOLID INJ 600 MG in PREMIX 1 EACH IV SCH ×2 (09:43→22:18)
--- NOTE | 2016-05-20 10:18 | Hospitalist Progress Note ---
Assessment and Plan - Time spent with patient Time spent with patient: Greater than 30 minutes (1) Pneumonia and influenza Status: Acute Assessment and plan: Dry chest CT revealed bilateral pneumonia, especially the lower lobes. Continue with linezolid and meropenem. Also continue with Tamiflu. sent for sputum culture Current Visit: Yes (2) Septic shock Status: Acute Assessment and plan: the patient was on vasopressor up till two days go. Source of infection likely from pneumonia. Her hypotension 2 days ago could also have been related to her rapid atrial fibrillation. Off pressors now. Blood pressure stable. Current Visit: Yes (3) Influenza Status: Acute Assessment and plan: Continue with Tamiflu for 5 days Current Visit: Yes (4) Neutropenia Status: Acute Assessment and plan: Patient's neutropenia and actually pancytopenia is improving. Seen in consult by Hematology who gave a dose of Neulasta. Current Visit: Yes (5) Thrombocytopenia Status: Acute Assessment and plan: likely secondary to sepsis. Discontinued Lovenox. No bleeding episode. Current Visit: Yes (6) Atrial fibrillation with RVR Status: Acute Assessment and plan: New onset. Rate is improving. Currently moderate. This is likely related to patient's pulmonary insult. She is not on any anticoagulation because of thrombocytopenia and anemia. Consulted Cardiology. Follow result of TSH / free T4 levels. echocardiogram done 3 days ago revealed EF of 50%. Follow Cardiology recommendation. Current Visit: Yes (7) Hypokalemia Status: Acute Assessment and plan: will be replaced to increase potassium to more than 4. follow magnesium level Current Visit: Yes (8) Hypomagnesemia Status: Acute Assessment and plan: being replaced. monitor magnesium level Current Visit: Yes Hospitalist: Subjective Interval history: This is a 75-year-old female with history significant for hypertension, non- Hodgkin's lymphoma and hyperlipidemia who was transferred from [facility] on May 16, 2016 with complaints of fever, chills and generalized weakness. She was febrile at 102 F and in atrial fibrillation with rapid ventricular rate with heart rate in the 180s. She was hypertensive on presentation with systolic blood pressure in the 80s. She initially responded to fluid boluses and amiodarone and her influenza and strep cultures came back positive. She however returned hypotensive and needed pressors here in our ICU initially to sustain her blood pressure. She has been off pressors for the past 2 days. In any case, patient was transferred here from [place] for continuity of care. Currently, patient is being treated for bilateral pneumonia with linezolid and meropenem. She has acute kidney injury and sepsis. On renal dosed Tamiflu. she is improving. She still on low-dose Cardizem infusion. I gave her a dose of digoxin today and consulted Cardiology for supposed atrial fibrillation with moderate rate. She has been downgraded to telemetry floor. Patient seen and examined. Heart rate have remained in the 110s. EKG done on admission revealed atrial fibrillation with rapid ventricular rate at 129. Patient has thrombocytopenia and not on anticoagulation. Platelet in the 60s now. Hemoglobin of 7.5 yesterday and she got 2 units of blood overnight and hemoglobin responded appropriately now at 11.5. Sodium is slowly creeping up. I reviewed anemia workup and I am going to get stool for FOBT. She had colonoscopy 8 years ago which she reported as normal. Currently, she has pleuritic chest pain only when she coughs. She is mildly short of breath. We will get an echo for her rapid atrial fibrillation. She is currently on Cardizem drip at a slow rate. Electrolytes being repleted. Exam - Constitutional Vitals: Period Temp Pulse Resp BP Sys/Li Pulse Ox Last 24 Hr 97.9 F-100.3 F 94-126 14-210 109-158/62-110 86-100 General appearance: normal weight - Head Head exam: Present: normocephalic, atraumatic - Eye Eye exam: Present: EOMI Pupils: Present: DANNY - Neck Neck exam: Absent: lymphadenopathy, thyromegaly - Respiratory Respiratory exam: Present: rhonchi - Cardiovascular Cardiovascular exam: Absent: JVD, systolic murmur - GI/Abdominal GI/Abdominal exam: Present: normal bowel sounds. Absent: ascites, mass - Extremities Exam Extremities exam: Absent: normal capillary refill, edema - Neurological Exam Neurological exam: Present: alert, oriented X3, CN II-XII intact - Psychiatric Psychiatric exam: Present: normal affect, normal mood Results - Labs CBC & BMP: 05/20/16 06:47 05/20/16 06:47 Lab Results: I have reviewed the past 24 hour labs
[2016-05-20] MEDS ORDERED: DIGOXIN 0.125 MG TABLET PO ONE (10:38)
--- NOTE | 2016-05-20 10:42 | EKG Report ---
Stationary ECG Study [facility] Test Date: 05/20/2016 10:42:48 AM Pat Name: MARYLOU ROPER Department: Room: 128 Gender: F [employer] Technician: MACK : [id number] Requested by: Tanner Mills Order Number: [id number] Reading MD: KEYANA FORMAN Intervals [place] Rate: 114 P: 999 [place]: 0 QRS: 78 QRSD: 80 T: 66 QT: 285 QTc: 352 Interpretive Statements Sinus tachycardia with frequent PACs and aberrancy Electronically Signed On 05-22-16 13:01:54 CDT by KEYANA FORMAN [email or web address]
[2016-05-20 10:53] LABS: Free T4 (Free Thyroxine) 1.52 NG/DL (0.76-1.46); Thyroid Stimulating Hormone 0.937 uIU/ml (0.358-3.74)
[2016-05-20] MEDS: SODIUM CHLORIDE 0.45% 1,000 ML IV SCH (11:22)
[2016-05-20] MEDS: METOPROLOL TARTRATE 25 MG TABLET PO SCH ×2 (11:43→22:12)
[2016-05-20] MEDS: DESITIN 4OZ/NYSTATIN 15 GRAM MIXTURE PASTE TOP SCH ×2 (11:44→21:00)
[2016-05-20] MEDS: POTASSIUM CHLORIDE 20 MEQ TABLET PO SCH (11:49)
[2016-05-20] MEDS: ACETYLCYSTEINE 20% 6,000 MG/30 ML VIAL PO SCH ×3 (11:50→23:00)
[2016-05-20] MEDS ORDERED: ALUM/MAG/SIMETH/LIDO VISC 1:1 30 ML BOTTLE PO PRN (12:29)
[2016-05-20] MEDS: POTASSIUM CHLORIDE 20 MEQ PACK PO SCH ×2 (14:24→22:00)
--- NOTE | 2016-05-20 15:45 | Cardiology Consult Note ---
Assessment and Plan (1) Tachycardia Status: Acute Assessment and plan: I have reviewed all the patient's telemetry strips. When I was in the room she was in sinus rhythm with frequent premature atrial contractions. I really think that has been her rhythm throughout the hospital stay. Although some of the EKGs and telemetry strips appear to show atrial fibrillation, I think they are really sinus tachycardia with frequent premature atrial contractions. She has marked depletion of electrolytes. I'm going to add vitamin C to her medical regimen. The tachycardia seems to be improved as her infections begin to clear. We can continue her other medications at this time. If necessary I' ll adjust them. Her echocardiogram shows preserved left ventricular systolic function. Current Visit: Yes (2) Irregular cardiac rhythm Status: Acute Current Visit: Yes (3) Pancytopenia Status: Acute Current Visit: Yes (4) Pneumonia and influenza Status: Acute Current Visit: Yes (5) Sepsis Status: Acute Current Visit: Yes History of Present Illness - Consult Narrative History of present illness: Ms. Aragon is a 75 year old female who has a history of non-Hodgkin's lymphoma , hypertension, and hyperlipidemia. She was transferred here a few days ago with bilateral pneumonia, influenza, sepsis, and pancytopenia. She has been critically ill since arrival. These issues have been treated and seemed to be slowly improving. She was noted to be tachycardic with possible atrial fibrillation on her clay burner and I been asked to see her regarding this. The patient denies any previous cardiac history. She denies any previous history of cardiac arrhythmia. She does not have any palpitations or cardiac specific symptoms at this time. I reviewed all of her telemetry strips. At the time of seeing her she was actually in a sinus rhythm with frequent premature atrial contractions. When I looked through her strips, I really think that has been her rhythm throughout her hospital stay. I don't think she's actually had atrial fibrillation, although it is difficult to say for sure on some of these telemetry strips. She does not have any history of coronary artery disease or angina. She does not have any history of congestive heart failure. Her echocardiogram showed preserved left ventricular systolic function. Current Medications Acetaminophen (Tylenol Liquid) 650 mg PO Q4H PRN PRN Reason: Fever, Headache, Mild Pain Last Admin: 05/18/16 22:02 Dose: 650 mg Acetylcysteine (Mucomyst 20% (Apap Od)) 200 mg PO Q4H PAMELA Stop: 05/23/16 03:01 Last Admin: 05/20/16 15:13 Dose: Not Given Albuterol/Ipratropium (Duoneb) 3 ml RESP TX RT Q6H PAMELA Last Admin: 05/20/16 15:00 Dose: 3 ml Ascorbic Acid (Vitamin C Tab) 1,000 mg PO BID PAMELA Clorazepate Dipotassium (Tranxene) 3.75 mg PO Q8H PRN PRN Reason: Anxiety Last Admin: 05/19/16 23:03 Dose: 3.75 mg Dextrose/Water (D50) 25 gm IV PRN PRN PRN Reason: Hypoglycemia with IV access Last Admin: 05/19/16 08:25 Dose: 25 gm Glucagon () 1 mg IM PRN PRN PRN Reason: Hypoglycemia w/o IV access Norepinephrine Bitartrate 8 mg (/ Sodium Chloride) 250 mls @ 3.75 mls/hr IV TITRATE PAMELA; 2 MCG/MIN PRN Reason: Protocol Last Admin: 05/18/16 14:44 Dose: Not Given Meropenem 500 mg/ Sodium (Chloride) 100 mls @ 200 mls/hr IV Q12H PAMELA Last Admin: 05/20/16 14:25 Dose: 200 mls/hr Linezolid 600 mg/ Premix 300 mls @ 300 mls/hr IV Q12H PAMELA Last Infusion: 05/20/16 11:20 Dose: Infused Diltiazem HCl 100 mg/ Sodium (Chloride) 100 mls @ 5 mls/hr IV TITRATE PAMELA; 5 MG /HR PRN Reason: Protocol Last Admin: 05/19/16 23:09 Dose: 5 mg/hr, 5 mls/hr Sodium Chloride (Ns) 250 mls @ 20 mls/hr IV .[id number] PRN PRN Reason: Blood Transfusion Stop: 05/20/16 17:16 Sodium Chloride (1/2ns) 1,000 mls @ 75 mls/hr IV .[id number] PAMELA Stop: 05/21/16 13:39 Last Admin: 05/20/16 11:22 Dose: 75 mls/hr Magnesium Sulfate 4 gm/ Premix 100 mls @ 25 mls/hr IV ONCE ONE Stop: 05/20/16 20:11 Potassium Chloride 10 meq/ (Premix) 100 mls @ 100 mls/hr IV ONCE ONE Stop: 05/20/16 17:11 Insulin Glargine (Lantus) 16 unit SUBCUT BEDTIME [facility] Insulin Glargine (Lantus) 16 unit SUBCUT BEDTIME [facility] Insulin Human Regular (Humulin R) 0 unit SUBCUT Q6HR PAMELA PRN Reason: Protocol Last Admin: 05/20/16 12:28 Dose: Not Given Lidocaine/Aluminum/Magnesium/Simeth (Gi Cocktail) 30 ml PO TID PRN PRN Reason: Abdominal Pain Stop: 05/21/16 21:01 Last Admin: 05/20/16 13:19 Dose: 30 ml Metoprolol Tartrate (Lopressor Tab) 25 mg PO BID [facility] Last Admin: 05/20/16 11:43 Dose: 25 mg Morphine Sulfate () 2 mg IV Q4H PRN PRN Reason: Pain Severe (8-10) Nystatin/Zinc Oxide (Skin Protectant Mixture) 1 applic TOP BID [facility] Last Admin: 05/20/16 11:44 Dose: 1 applic Ondansetron HCl (Zofran Inj) 4 mg IV Q4H PRN PRN Reason: Nausea Oseltamivir Phosphate (Tamiflu Cap) 30 mg PO DAILY [facility] Last Admin: 05/20/16 09:42 Dose: 30 mg Potassium Chloride () 40 meq PO BID [facility] Stop: 05/20/16 21:01 Last Admin: 05/20/16 14:24 Dose: 40 meq Zaleplon (Sonata) 5 mg PO BEDTIME PRN PRN Reason: Sleep Last Admin: 05/19/16 23:20 Dose: 5 mg CC: Tanner Mills MD - Home Medications and Allergies Home Medications: Home Medications Medication Instructions Recorded Confirmed Type Canagliflozin [Invokana] 100 mg PO DAILY 05/16/16 05/16/16 History Ferrous Sulfate Tab [Feosol 325 mg PO TID 05/16/16 05/16/16 History Original Tab] Fexofenadine [Ramya] 180 mg PO DAILY PRN 05/16/16 05/16/16 History Folic Acid Tab 1 mg PO BID 05/16/16 05/16/16 History Ibuprofen Tab [Motrin Tab] 600 mg PO Q6H PRN 05/16/16 05/16/16 History Irbesartan 300 mg PO DAILY 05/16/16 05/16/16 History Metformin HCl 1,000 mg PO BID 05/16/16 05/16/16 History Metoprolol Succinate Xl [Toprol Xl] 50 mg PO DAILY 05/16/16 05/16/16 History Multivitamin (Centrum) [Centrum 1 tablet PO DAILY 05/16/16 05/16/16 History Tab] Pioglitazone HCl 15 mg PO DAILY 05/16/16 05/16/16 History Allergies/Adverse Reactions: Allergies Allergy/AdvReac Type Severity Reaction Status Date / Time No Known Allergies Allergy Unverified 05/16/16 10:39 12 point system: reviewed and no additional remarkable complaints except as stated Medical,Surgical,& Family Hx - Medical History Cardio: History of: Hypertension HEENT: History of: Dental Problems (HAVE UPPER DENTAL IMPLANTS) Endocrine: History of: Dyslipidemia Respiratory: History of: Bronchitis, Pneumonia Genitourinary: History of: Recurring Urinary Tract Infections Musculoskeletal: No history of: Amputation Hematology: History of: Hematologic Cancer (Patient with history of non-Hodgkin' s lymphoma) Other: History of: Cancer - Surgical History Abdominal Surgeries: Patient denies: Abdominal Surgery - Family History Family History: Reports;: Family Heart Disease (FATHER AND MOTHER) - Social History Smoking Status: Never smoker Frequency of Alcohol Use: None Type of Drug Use: None Physical Examination Vital Signs Temp Pulse Resp BP Pulse Ox 101 F H 124 H 16 75/39 91 L 05/16/16 10:32 05/16/16 10:32 05/16/16 10:32 05/16/16 10:32 05/16/16 10:32 Other: General: Frail appearing elderly female in no acute distress HEENT: Normocephalic, atraumatic Neck: Supple Neck, Midline Trachea Cardiac: Irregular Rhythm, No Murmur, no gallop, no rub Lungs: Grossly Normal Exam, Clear to Ascultation, No Wheeze, Rales, Rhonchi Neuro: Cranial Nerve 2-12 Intact, grossly normal Abdomen: Soft, Active Bowel Sounds, No Masses, No Pulsations/Bruits Skin: Normal color, no rash Extremities: No Clubbing, No Cyanosis, No Edema, Normal Upper Extr. Pulses Musculoskeletal: No acute abnormality noted Psychiatric: The patient seems mildly anxious but is otherwise appropriate Result/EKG - Labs CBC & BMP: 05/20/16 06:47 05/20/16 06:47 Lab Results: I have reviewed the past 24 hour labs Labs: Laboratory Results - last 24 hr 05/19/16 05/19/16 05/19/16 08:17 12:38 17:35 WBC RBC Hgb Hct MCV MCH MCHC RDW Plt Count MPV Neut % (Auto) Lymph % (Auto) [place] % (Auto) Eos % (Auto) Baso % (Auto) Neut # (Auto) Lymph # (Auto) [place] # (Auto) Eos # (Auto) Baso # (Auto) Total Counted Immature Gran % Nucleated RBC % Immature Gran # Segmented Neutrophils Band Neutrophils Lymphocytes Monocytes Eosinophils Nucleated RBCs Nucleated RBCs # Platelet Estimate Hypochromasia Ovalocytes Morphology Comment Haptoglobin INR 1.0 PT Patient/Control Mix 11.1 Fibrinogen 529 H Circ Anticoag PTT 56.0 H Sodium Potassium Chloride Carbon Dioxide Anion Gap BUN Creatinine GFR Calculation BUN/Creatinine Ratio Glucose POC Glucose 50 L 141 H Calculated Osmolality Calcium Magnesium Total Bilirubin Direct Bilirubin Indirect Bilirubin AST ALT Alkaline Phosphatase Total Protein Albumin Vitamin B12 Folate Free T4 TSH 3rd Generation Blood Type Antibody Screen Crossmatch 05/19/16 05/19/16 05/19/16 17:35 17:35 17:35 WBC RBC Hgb Hct MCV MCH MCHC RDW Plt Count MPV Neut % (Auto) Lymph % (Auto) [place] % (Auto) Eos % (Auto) Baso % (Auto) Neut # (Auto) Lymph # (Auto) [place] # (Auto) Eos # (Auto) Baso # (Auto) Total Counted Immature Gran % Nucleated RBC % Immature Gran # Segmented Neutrophils Band Neutrophils Lymphocytes Monocytes Eosinophils Nucleated RBCs Nucleated RBCs # Platelet Estimate Hypochromasia Ovalocytes Morphology Comment Haptoglobin 432.0 H INR PT Patient/Control Mix Fibrinogen Circ Anticoag PTT Sodium Potassium Chloride Carbon Dioxide Anion Gap BUN Creatinine GFR Calculation BUN/Creatinine Ratio Glucose POC Glucose Calculated Osmolality Calcium Magnesium Total Bilirubin Direct Bilirubin Indirect Bilirubin AST ALT Alkaline Phosphatase Total Protein Albumin Vitamin B12 > 2000 H Folate > 24.0 H Free T4 TSH 3rd Generation Blood Type O NEGATIVE Antibody Screen Negative Crossmatch See Detail 05/19/16 05/19/16 05/19/16 17:35 18:29 18:48 WBC RBC Hgb Hct MCV MCH MCHC RDW Plt Count MPV Neut % (Auto) Lymph % (Auto) [place] % (Auto) Eos % (Auto) Baso % (Auto) Neut # (Auto) Lymph # (Auto) [place] # (Auto) Eos # (Auto) Baso # (Auto) Total Counted Immature Gran % Nucleated RBC % Immature Gran # Segmented Neutrophils Band Neutrophils Lymphocytes Monocytes Eosinophils Nucleated RBCs Nucleated RBCs # Platelet Estimate Hypochromasia Ovalocytes Morphology Comment Haptoglobin INR PT Patient/Control Mix Fibrinogen Circ Anticoag PTT Sodium Potassium Chloride Carbon Dioxide Anion Gap BUN Creatinine GFR Calculation BUN/Creatinine Ratio Glucose POC Glucose 74 Calculated Osmolality Calcium Magnesium Total Bilirubin 0.70 Direct Bilirubin 0.2 Indirect Bilirubin 0.5 AST 17 ALT 13 Alkaline Phosphatase 48 Total Protein 4.7 L Albumin 2.0 L Vitamin B12 Folate Free T4 TSH 3rd Generation Blood Type O NEGATIVE Antibody Screen Crossmatch 05/19/16 05/20/16 05/20/16 20:56 00:58 06:27 WBC RBC Hgb Hct MCV MCH MCHC RDW Plt Count MPV Neut % (Auto) Lymph % (Auto) [place] % (Auto) Eos % (Auto) Baso % (Auto) Neut # (Auto) Lymph # (Auto) [place] # (Auto) Eos # (Auto) Baso # (Auto) Total Counted Immature Gran % Nucleated RBC % Immature Gran # Segmented Neutrophils Band Neutrophils Lymphocytes Monocytes Eosinophils Nucleated RBCs Nucleated RBCs # Platelet Estimate Hypochromasia Ovalocytes Morphology Comment Haptoglobin INR PT Patient/Control Mix Fibrinogen Circ Anticoag PTT Sodium Potassium Chloride Carbon Dioxide Anion Gap BUN Creatinine GFR Calculation BUN/Creatinine Ratio Glucose POC Glucose 56 L 87 75 Calculated Osmolality Calcium Magnesium Total Bilirubin Direct Bilirubin Indirect Bilirubin AST ALT Alkaline Phosphatase Total Protein Albumin Vitamin B12 Folate Free T4 TSH 3rd Generation Blood Type Antibody Screen Crossmatch 05/20/16 05/20/16 05/20/16 06:47 06:47 06:47 WBC 3.6 L D RBC 3.71 L D Hgb 11.5 L D Hct 32.8 L MCV 88.4 MCH 31 MCHC 35.1 RDW 15.2 Plt Count 61 L MPV 13.1 H Neut % (Auto) 63.2 Lymph % (Auto) 19.7 L [place] % (Auto) 11.9 Eos % (Auto) 0.8 Baso % (Auto) 1.4 H Neut # (Auto) 2.3 Lymph # (Auto) 0.7 L [place] # (Auto) 0.4 Eos # (Auto) 0.0 Baso # (Auto) 0.1 Total Counted 100 Immature Gran % 3.0 Nucleated RBC % 7.2 Immature Gran # 0.11 Segmented Neutrophils 62 Band Neutrophils 3 Lymphocytes 23 Monocytes 11 Eosinophils 1 Nucleated RBCs 3 Nucleated RBCs # 0.26 Platelet Estimate Decreased Hypochromasia 1+ Ovalocytes Slight Morphology Comment Haptoglobin INR PT Patient/Control Mix Fibrinogen Circ Anticoag PTT Sodium 150 H Potassium 2.8 L Chloride 114 H Carbon Dioxide 19 L Anion Gap 19.8 H BUN 29 H D Creatinine 1.50 H GFR Calculation 33 BUN/Creatinine Ratio 19.00 Glucose 74 POC Glucose Calculated Osmolality 302.0 Calcium 7.3 L Magnesium 1.5 L Total Bilirubin Direct Bilirubin Indirect Bilirubin AST ALT Alkaline Phosphatase Total Protein Albumin Vitamin B12 Folate Free T4 1.52 H TSH 3rd Generation 0.937 Blood Type Antibody Screen Crossmatch 05/20/16 11:52 WBC RBC Hgb Hct MCV MCH MCHC RDW Plt Count MPV Neut % (Auto) Lymph % (Auto) [place] % (Auto) Eos % (Auto) Baso % (Auto) Neut # (Auto) Lymph # (Auto) [place] # (Auto) Eos # (Auto) Baso # (Auto) Total Counted Immature Gran % Nucleated RBC % Immature Gran # Segmented Neutrophils Band Neutrophils Lymphocytes Monocytes Eosinophils Nucleated RBCs Nucleated RBCs # Platelet Estimate Hypochromasia Ovalocytes Morphology Comment Haptoglobin INR PT Patient/Control Mix Fibrinogen Circ Anticoag PTT Sodium Potassium Chloride Carbon Dioxide Anion Gap BUN Creatinine GFR Calculation BUN/Creatinine Ratio Glucose POC Glucose 119 H Calculated Osmolality Calcium Magnesium Total Bilirubin Direct Bilirubin Indirect Bilirubin AST ALT Alkaline Phosphatase Total Protein Albumin Vitamin B12 Folate Free T4 TSH 3rd Generation Blood Type Antibody Screen Crossmatch - EKG EKG results: interpreted by me
[2016-05-20] MEDS ORDERED: POTASSIUM CHLORIDE RIDER 10 MEQ in PREMIX 1 EACH IV ONE (16:12)
[2016-05-20] MEDS ORDERED: MAGNESIUM SULF RIDER 4 GM in PREMIX 1 EACH IV ONE ×2 (16:12→20:20)
[2016-05-20] MEDS ORDERED: INSULIN GLARGINE 100 UNIT/ML SUBCUT SCH (21:00)
[2016-05-20] MEDS: CLORAZEPATE 7.5 MG TABLET PO PRN (22:13)
[2016-05-20] MEDS: ZALEPLON 5 MG CAPSULE PO PRN (22:13)
[2016-05-20] MEDS: ASCORBIC ACID 500 MG TABLET PO SCH (22:14)
[2016-05-20] MEDS: POTASSIUM CHLORIDE INJ 40 MEQ in SODIUM CHLORIDE 0.45% 1,000 ML IV SCH (22:28)
[2016-05-20] MEDS: DILTIAZEM INJ 100 MG in SODIUM CHLORIDE 0.9% 100 ML IV SCH (22:30)
[2016-05-21] MEDS: ALBUTEROL/IPRATROPIUM 3 ML NEB RESP TX SCH ×4 (00:36→19:23)
[2016-05-21] MEDS: INSULIN REGULAR 100 UNIT/ML SUBCUT SCH ×5 (01:06→18:41)
[2016-05-21] MEDS: INSULIN GLARGINE 100 UNIT/ML SUBCUT SCH ×2 (01:07→20:45)
[2016-05-21] MEDS: ACETYLCYSTEINE 20% 6,000 MG/30 ML VIAL PO SCH ×9 (02:02→22:55)
[2016-05-21] MEDS: MEROPENEM 500 MG in SODIUM CHLORIDE 0.9% 100 ML IV SCH (02:10)
[2016-05-21 05:23] LABS: Basophils % 0.7 % (0.0-0.8); Eosinophils % 0.7 % (0.00-10.9); Hematocrit 31.1 VOL% (35.7-47.0); Hemoglobin 10.8 GM/DL (12.0-16.0); Immature Granulocytes % 4.6 %; Immature Granulocytes Absolute 0.27 #; Lymphocytes # 0.8 10*3/uL (1.4-4.0); Lymphocytes % 13.2 % (21.3-54.2); Mean Corpuscular HGB Conc 34.7 GM/DL (32-36); Mean Corpuscular Hemoglobin 31 PG (27-34); Mean Corpuscular Volume 89.1 FL (87-102); Mean Platelet Volume 13.7 FL (9.6-12.0); Monocytes # 0.5 10*3/uL (0.11-0.8); Monocytes % 8.3 % (1.7-12.7); NRBC # 0.18 10*3/uL; Neutrophils # 4.3 10*3/uL (1.4-7.4); Neutrophils % 72.5 % (38.7-73.9); Red Blood Count 3.49 MC/CUMM (3.8-5.5); Red Cell Distribution Width 15.5 % (9.3-17.3); White Blood Count 5.9 T/CUMM (4-12)
[2016-05-21 05:26] LABS: Platelet Count 57 T/CUMM (130-400)
[2016-05-21 05:46] LABS: Band Neutrophils 12 % (0-10); Eosinophils 1 % (0-10); Lymphocytes 12 % (20-55); Metamyelocytes 2 %; Nucleated Red Blood Cells 2 (0-5); Segmented Neutrophils 66 % (50-85); Total Cells Counted 100
[2016-05-21 05:47] LABS: Platelet Estimate Decreased; Toxic Granulation 1+
[2016-05-21 05:49] LABS: Dohle Bodies Few
[2016-05-21 05:56] LABS: Calcium 7.8 MG/DL (8.5-10.1); Magnesium 2.3 MG/DL (1.8-2.4); Osmolality,Calculated 300.4 MOS/KG (273-304)
[2016-05-21] MEDS: OSELTAMIVIR 30 MG CAPSULE PO SCH (08:12)
[2016-05-21] MEDS: DESITIN 4OZ/NYSTATIN 15 GRAM MIXTURE PASTE TOP SCH ×2 (08:12→20:45)
[2016-05-21] MEDS: ASCORBIC ACID 500 MG TABLET PO SCH ×2 (08:12→20:43)
[2016-05-21] MEDS: METOPROLOL TARTRATE 25 MG TABLET PO SCH (08:12)
[2016-05-21] MEDS: POTASSIUM CHLORIDE INJ 40 MEQ in SODIUM CHLORIDE 0.45% 1,000 ML IV SCH ×2 (08:33→14:57)
[2016-05-21] MEDS: SODIUM CHLORIDE 0.45% 1,000 ML IV SCH (08:33)
[2016-05-21] MEDS: LINEZOLID INJ 600 MG in PREMIX 1 EACH IV SCH ×2 (09:18→22:55)
--- NOTE | 2016-05-21 09:33 | Cardiology Progress Note ---
<Maude Mas - Last Filed: 05/21/16 09:30> Assessment and Plan (1) Tachycardia Status: Acute Assessment and plan: This continues to appear to be sinus rhythm with frequent premature atrial contractions. I have ordered an EKG this morning for review. She has marked depletion of electrolytes. Vitamin C was added yesterday. Will continue to replace potassium today. The tachycardia is well controlled. HR is ranging from 90's-110's. I feel that this will continue to improve as her infections clear. Her beta frantz was increased this morning per hospitalist. Continue current medication regimen. Her echocardiogram shows preserved left ventricular systolic function. Current Visit: Yes (2) Irregular cardiac rhythm Status: Acute Current Visit: Yes (3) Pancytopenia Status: Acute Current Visit: Yes (4) Pneumonia and influenza Status: Acute Assessment and plan: Continue antibiotics. Management per hospitalists. Current Visit: Yes (5) Sepsis Status: Acute Assessment and plan: Continue antibiotics. Management per hospitalists. Current Visit: Yes Cardiology - PN: Subj Interval history: Patient was seen in CCU. Patient continues to slowly improve. She is resting in bed in no acute distress. Requiring oxygen at 2L [place]. She did well overnight and is without cardiac complaints. She denies palpitations/heart racing. Her potassium is noted to be 3.0 this morning despite replacement. 40 meq's of potassium was added to his IVF's yesterday. Magnesium is stable at 2.3. Creatinine is relatively stable at 1.2. Patient is currently sinus tach with multiple PAC's. Heart rate ranging from 90-110. Vital signs are stable. Recent echo reveals EF of approximately 50% with mild concentric LVH. Active Medications Acetaminophen (Tylenol Liquid) 650 mg PO Q4H PRN PRN Reason: Fever, Headache, Mild Pain Last Admin: 05/18/16 22:02 Dose: 650 mg Acetylcysteine (Mucomyst 20% (Apap Od)) 200 mg PO Q4H [facility] Stop: 05/23/16 03:01 Last Admin: 05/21/16 07:16 Dose: Not Given Albuterol/Ipratropium (Duoneb) 3 ml RESP TX RT Q6H [facility] Last Admin: 05/21/16 07:26 Dose: 3 ml Ascorbic Acid (Vitamin C Tab) 1,000 mg PO BID [facility] Last Admin: 05/21/16 08:12 Dose: 1,000 mg Clorazepate Dipotassium (Tranxene) 3.75 mg PO Q8H PRN PRN Reason: Anxiety Last Admin: 05/20/16 22:13 Dose: 3.75 mg Dextrose/Water (D50) 25 gm IV PRN PRN PRN Reason: Hypoglycemia with IV access Last Admin: 05/19/16 08:25 Dose: 25 gm Glucagon () 1 mg IM PRN PRN PRN Reason: Hypoglycemia w/o IV access Meropenem 500 mg/ Sodium (Chloride) 100 mls @ 200 mls/hr IV Q12H [facility] Last Infusion: 05/21/16 02:40 Dose: Infused Linezolid 600 mg/ Premix 300 mls @ 300 mls/hr IV Q12H [facility] Last Admin: 05/21/16 09:18 Dose: 300 mls/hr Diltiazem HCl 100 mg/ Sodium (Chloride) 100 mls @ 5 mls/hr IV TITRATE [facility]; 5 MG /HR PRN Reason: Protocol Last Admin: 05/20/16 22:30 Dose: Not Given Sodium Chloride (1/2ns) 1,000 mls @ 75 mls/hr IV .[id number] [facility] Stop: 05/21/16 13:39 Last Admin: 05/21/16 08:33 Dose: Not Given Potassium Chloride 40 meq/ (Sodium Chloride) 1,020 mls @ 100 mls/hr IV .[id number] [facility] Last Admin: 05/21/16 08:33 Dose: Not Given Insulin Glargine (Lantus) 16 unit SUBCUT BEDTIME [facility] Last Admin: 05/20/16 22:17 Dose: 16 unit Insulin Glargine (Lantus) 16 unit SUBCUT BEDTIME [facility] Last Admin: 05/21/16 01:07 Dose: Not Given Insulin Human Regular (Humulin R) 0 unit SUBCUT Q6HR [facility] PRN Reason: Protocol Last Admin: 05/21/16 07:16 Dose: Not Given Lidocaine/Aluminum/Magnesium/Simeth (Gi Cocktail) 30 ml PO TID PRN PRN Reason: Abdominal Pain Stop: 05/21/16 21:01 Last Admin: 05/20/16 13:19 Dose: 30 ml Metoprolol Tartrate (Lopressor Tab) 25 mg PO BID [facility] Last Admin: 05/21/16 08:12 Dose: 25 mg Morphine Sulfate () 2 mg IV Q4H PRN PRN Reason: Pain Severe (8-10) Nystatin/Zinc Oxide (Skin Protectant Mixture) 1 applic TOP BID [facility] Last Admin: 05/21/16 08:12 Dose: 1 applic Ondansetron HCl (Zofran Inj) 4 mg IV Q4H PRN PRN Reason: Nausea Oseltamivir Phosphate (Tamiflu Cap) 30 mg PO DAILY [facility] Last Admin: 05/21/16 08:12 Dose: 30 mg Zaleplon (Sonata) 5 mg PO BEDTIME PRN PRN Reason: Sleep Last Admin: 05/20/16 22:13 Dose: 5 mg Exam (Progress Note) - Constitutional Vitals: Period Temp Pulse Resp BP Sys/Li Pulse Ox Last 24 Hr 97.8 F-99.4 F 71-121 14-34 122-160/61-99 89-99 General appearance: normal weight, no acute distress - Head Head exam: Present: normal inspection, normocephalic, atraumatic - Respiratory Respiratory exam: Present: rales, rhonchi, wheezes. Absent: accessory muscle use, chest wall tenderness - Cardiovascular Cardiovascular exam: Present: other (sinus with PAC's). Absent: carotid bruit, gallop, rubs - GI/Abdominal GI/Abdominal exam: Present: normal bowel sounds, soft. Absent: distended, firm , mass, tenderness - Extremities Exam Extremities exam: Present: normal inspection, normal capillary refill. Absent: calf tenderness, edema - Neurological Exam Neurological exam: Present: alert, oriented X3 - Skin Skin exam: Present: normal color, warm, dry. Absent: cyanosis Result/EKG - Labs CBC & BMP: 05/21/16 04:07 05/21/16 04:07 Lab Results: I have reviewed the past 24 hour labs Labs: Laboratory Results - last 24 hr 05/20/16 05/20/16 05/20/16 06:27 06:47 11:52 WBC RBC Hgb Hct MCV MCH MCHC RDW Plt Count MPV Neut % (Auto) Lymph % (Auto) [place] % (Auto) Eos % (Auto) Baso % (Auto) Neut # (Auto) Lymph # (Auto) [place] # (Auto) Eos # (Auto) Baso # (Auto) Total Counted Immature Gran % Nucleated RBC % Immature Gran # Segmented Neutrophils Band Neutrophils Lymphocytes Monocytes Eosinophils Metamyelocytes Nucleated RBCs Nucleated RBCs # Toxic Granulation Dohle Bodies Platelet Estimate Sickle Cells Sodium Potassium Chloride Carbon Dioxide Anion Gap BUN Creatinine GFR Calculation BUN/Creatinine Ratio Glucose POC Glucose 75 119 H Calculated Osmolality Calcium Magnesium Free T4 1.52 H TSH 3rd Generation 0.937 05/20/16 05/20/16 05/21/16 17:49 22:12 00:24 WBC RBC Hgb Hct MCV MCH MCHC RDW Plt Count MPV Neut % (Auto) Lymph % (Auto) [place] % (Auto) Eos % (Auto) Baso % (Auto) Neut # (Auto) Lymph # (Auto) [place] # (Auto) Eos # (Auto) Baso # (Auto) Total Counted Immature Gran % Nucleated RBC % Immature Gran # Segmented Neutrophils Band Neutrophils Lymphocytes Monocytes Eosinophils Metamyelocytes Nucleated RBCs Nucleated RBCs # Toxic Granulation Dohle Bodies Platelet Estimate Sickle Cells Sodium Potassium Chloride Carbon Dioxide Anion Gap BUN Creatinine GFR Calculation BUN/Creatinine Ratio Glucose POC Glucose 140 H 111 H 127 H Calculated Osmolality Calcium Magnesium Free T4 TSH 3rd Generation 05/21/16 05/21/16 05/21/16 04:07 04:07 06:18 WBC 5.9 D RBC 3.49 L Hgb 10.8 L Hct 31.1 L MCV 89.1 MCH 31 MCHC 34.7 RDW 15.5 Plt Count 57 L MPV 13.7 H Neut % (Auto) 72.5 Lymph % (Auto) 13.2 L [place] % (Auto) 8.3 Eos % (Auto) 0.7 Baso % (Auto) 0.7 Neut # (Auto) 4.3 Lymph # (Auto) 0.8 L [place] # (Auto) 0.5 Eos # (Auto) 0.0 Baso # (Auto) 0.0 Total Counted 100 Immature Gran % 4.6 Nucleated RBC % 3.1 Immature Gran # 0.27 Segmented Neutrophils 66 Band Neutrophils 12 H Lymphocytes 12 L Monocytes 7 Eosinophils 1 Metamyelocytes 2 Nucleated RBCs 2 Nucleated RBCs # 0.18 Toxic Granulation 1+ Dohle Bodies Few Platelet Estimate Decreased Sickle Cells Nurse Midwife/Clinical Instructor Sodium 147 H Potassium 3.0 L Chloride 109 H Carbon Dioxide 20 L Anion Gap 21.0 H BUN 28 H Creatinine 1.20 H GFR Calculation 43 BUN/Creatinine Ratio 23.00 H Glucose 154 H POC Glucose 141 H Calculated Osmolality 300.4 Calcium 7.8 L Magnesium 2.3 Free T4 TSH 3rd Generation <Artis Hopson - Last Filed: 05/21/16 10:15> Assessment and Plan (1) Tachycardia Status: Acute Current Visit: Yes (2) Irregular cardiac rhythm Status: Acute Current Visit: Yes (3) Pancytopenia Status: Acute Current Visit: Yes (4) Pneumonia and influenza Status: Acute Current Visit: Yes (5) Sepsis Status: Acute Current Visit: Yes Cardiology - PN: Subj Interval history: I have seen, interviewed, examined the patient and reviewed his chart and discussed the case with the mid-level provider and agree with the plan as outlined in the note. Exam (Progress Note) - Constitutional Vitals: Period Temp Pulse Resp BP Sys/Li Pulse Ox Last 24 Hr 97.8 F-99.4 F 71-121 14-34 122-160/61-99 89-99 Result/EKG - Labs CBC & BMP: 05/21/16 04:07 05/21/16 04:07 Labs: Laboratory Results - last 24 hr 05/20/16 05/20/16 05/20/16 06:27 06:47 11:52 WBC RBC Hgb Hct MCV MCH MCHC RDW Plt Count MPV Neut % (Auto) Lymph % (Auto) [place] % (Auto) Eos % (Auto) Baso % (Auto) Neut # (Auto) Lymph # (Auto) [place] # (Auto) Eos # (Auto) Baso # (Auto) Total Counted Immature Gran % Nucleated RBC % Immature Gran # Segmented Neutrophils Band Neutrophils Lymphocytes Monocytes Eosinophils Metamyelocytes Nucleated RBCs Nucleated RBCs # Toxic Granulation Dohle Bodies Platelet Estimate Sickle Cells Sodium Potassium Chloride Carbon Dioxide Anion Gap BUN Creatinine GFR Calculation BUN/Creatinine Ratio Glucose POC Glucose 75 119 H Calculated Osmolality Calcium Magnesium Free T4 1.52 H TSH 3rd Generation 0.937 05/20/16 05/20/16 05/21/16 17:49 22:12 00:24 WBC RBC Hgb Hct MCV MCH MCHC RDW Plt Count MPV Neut % (Auto) Lymph % (Auto) [place] % (Auto) Eos % (Auto) Baso % (Auto) Neut # (Auto) Lymph # (Auto) [place] # (Auto) Eos # (Auto) Baso # (Auto) Total Counted Immature Gran % Nucleated RBC % Immature Gran # Segmented Neutrophils Band Neutrophils Lymphocytes Monocytes Eosinophils Metamyelocytes Nucleated RBCs Nucleated RBCs # Toxic Granulation Dohle Bodies Platelet Estimate Sickle Cells Sodium Potassium Chloride Carbon Dioxide Anion Gap BUN Creatinine GFR Calculation BUN/Creatinine Ratio Glucose POC Glucose 140 H 111 H 127 H Calculated Osmolality Calcium Magnesium Free T4 TSH 3rd Generation 05/21/16 05/21/16 05/21/16 04:07 04:07 06:18 WBC 5.9 D RBC 3.49 L Hgb 10.8 L Hct 31.1 L MCV 89.1 MCH 31 MCHC 34.7 RDW 15.5 Plt Count 57 L MPV 13.7 H Neut % (Auto) 72.5 Lymph % (Auto) 13.2 L [place] % (Auto) 8.3 Eos % (Auto) 0.7 Baso % (Auto) 0.7 Neut # (Auto) 4.3 Lymph # (Auto) 0.8 L [place] # (Auto) 0.5 Eos # (Auto) 0.0 Baso # (Auto) 0.0 Total Counted 100 Immature Gran % 4.6 Nucleated RBC % 3.1 Immature Gran # 0.27 Segmented Neutrophils 66 Band Neutrophils 12 H Lymphocytes 12 L Monocytes 7 Eosinophils 1 Metamyelocytes 2 Nucleated RBCs 2 Nucleated RBCs # 0.18 Toxic Granulation 1+ Dohle Bodies Few Platelet Estimate Decreased Sickle Cells Nurse Midwife/Clinical Instructor Sodium 147 H Potassium 3.0 L Chloride 109 H Carbon Dioxide 20 L Anion Gap 21.0 H BUN 28 H Creatinine 1.20 H GFR Calculation 43 BUN/Creatinine Ratio 23.00 H Glucose 154 H POC Glucose 141 H Calculated Osmolality 300.4 Calcium 7.8 L Magnesium 2.3 Free T4 TSH 3rd Generation - EKG EKG results: interpreted by me
--- NOTE | 2016-05-21 09:44 | EKG Report ---
Stationary ECG Study [facility] Test Date: 05/21/2016 9:44:03 AM Pat Name: MARYLOU ROPER Department: Room: 128 Gender: F Director Design: YESSI : 1940 Requested by: Maude Mas Order Number: [id number] Reading MD: JULIA ABDUL Intervals [place] Rate: 97 P: 999 DE: 0 QRS: 34 QRSD: 77 T: 65 QT: 371 QTc: 425 Interpretive Statements ATRIAL FIBRILLATION ANTEROSEPTAL MYOCARDIAL INFARCTION, PROBABLY RECENT ACUTE AR Electronically Signed On 05-24-16 06:28:27 CDT by JULIA ABDUL [email or web address]
[2016-05-21] MEDS ORDERED: POTASSIUM CHLORIDE RIDER 10 MEQ in PREMIX 1 EACH IV ONE (09:58)
--- NOTE | 2016-05-21 09:58 | Hospitalist Progress Note ---
Assessment and Plan (1) Hypokalemia Status: Acute Assessment and plan: Replacement ordered. Current Visit: Yes (2) Irregular cardiac rhythm Status: Acute Assessment and plan: Patient with tachycardia and premature atrial contractions. Has questionable episodes of atrial fibrillation with rapid ventricular response. Cardiology following. Increase metoprolol to 50 mg twice daily. No anticoagulation at this time. Current Visit: Yes (3) Pancytopenia Status: Acute Assessment and plan: Patient received packed red blood cells. Monitor platelets. She is on Zyvox. This may be contributing however it was felt by hematology that this was related to sepsis. Current Visit: Yes (4) Pneumonia and influenza Status: Acute Assessment and plan: Continue Zyvox and Merrem. Tamiflu added. Current Visit: Yes (5) Tachycardia Status: Acute Assessment and plan: Increase metoprolol. Monitor for A. fib with RVR. Replace electrolytes. Current Visit: Yes Hospitalist: Subjective Interval history: Patient seen and examined. Chart reviewed. Receiving IV antibiotics for bilateral pneumonia as well as Tamiflu for influenza. Electrolytes improving. Thrombocytopenia persists. Exam - Constitutional Vitals: Period Temp Pulse Resp BP Sys/Li Pulse Ox Last 24 Hr 97.8 F-99.4 F 71-121 14-34 122-160/61-99 89-99 Exam: Constitutional System: Mild distress. No tremulousness. Head: Normocephalic, atraumatic. Ears, Nose and Throat System: No pain or tenderness. No epistaxis or discharge Eyes System: Pupils equal, round, and reactive. Extraocular muscles intact. Neck: Supple, without adenopathy, No jugular venous distention. No thyromegaly, neck mass, or prior surgery apparent. Respiratory System: Chest clear to auscultation. Cardiovascular System: Heart with regular rate and rhythm. No murmur. GI System: Abdomen soft, nontender. Normo active bowel sounds present. Musculoskeletal System: limbs with no pedal edema. Full distal pulses. Neurological System: No discernable sensory deficit. No aphasia Psychiatric System: Conversation is rational Results - Labs CBC & BMP: 05/21/16 04:07 05/21/16 04:07 Lab Results: I have reviewed the past 24 hour labs
[2016-05-21] MEDS: POTASSIUM CHLORIDE 20 MEQ TABLET PO SCH ×3 (10:34→20:44)
[2016-05-21] MEDS: METOPROLOL TARTRATE 50 MG TABLET PO SCH ×2 (10:34→20:44)
[2016-05-21] MEDS: SODIUM CHLORIDE 0.9% 1,000 ML IV SCH ×2 (11:14→11:15)
[2016-05-21] MEDS: PANTOPRAZOLE 40 MG VIAL IV SCH (11:15)
[2016-05-21] MEDS: NOREPINEPHRINE 8 MG in SODIUM CHLORIDE 0.9% 242 ML IV SCH (11:16)
[2016-05-21] MEDS: MEROPENEM 1,000 MG in SODIUM CHLORIDE 0.9% 100 ML IV SCH (15:00)
[2016-05-21] MEDS: OSELTAMIVIR 75 MG CAPSULE PO SCH (15:40)
[2016-05-21] MEDS: CLORAZEPATE 7.5 MG TABLET PO PRN (20:43)
[2016-05-21] MEDS: ZALEPLON 5 MG CAPSULE PO PRN (20:44)
[2016-05-22] MEDS: INSULIN REGULAR 100 UNIT/ML SUBCUT SCH ×4 (03:01→17:54)
[2016-05-22] MEDS: POTASSIUM CHLORIDE INJ 40 MEQ in SODIUM CHLORIDE 0.45% 1,000 ML IV SCH ×5 (03:01→23:34)
[2016-05-22] MEDS: MEROPENEM 1,000 MG in SODIUM CHLORIDE 0.9% 100 ML IV SCH ×2 (03:01→14:58)
[2016-05-22] MEDS: ACETYLCYSTEINE 20% 6,000 MG/30 ML VIAL PO SCH ×6 (03:04→23:45)
[2016-05-22 04:23] LABS: Basophils % 0.1 % (0.0-0.8); Eosinophils # 0.1 10*3/uL (0.0-0.87); Hematocrit 30.4 VOL% (35.7-47.0); Hemoglobin 10.3 GM/DL (12.0-16.0); Immature Granulocytes % 5.5 %; Immature Granulocytes Absolute 0.48 #; Lymphocytes # 1.2 10*3/uL (1.4-4.0); Lymphocytes % 13.8 % (21.3-54.2); Mean Corpuscular HGB Conc 33.9 GM/DL (32-36); Mean Corpuscular Hemoglobin 31 PG (27-34); Mean Corpuscular Volume 90.5 FL (87-102); Mean Platelet Volume 12.9 FL (9.6-12.0); Monocytes # 0.5 10*3/uL (0.11-0.8); Monocytes % 5.5 % (1.7-12.7); NRBC # 0.15 10*3/uL; Neutrophils # 6.5 10*3/uL (1.4-7.4); Neutrophils % 74.1 % (38.7-73.9); Platelet Count 56 T/CUMM (130-400); Red Blood Count 3.36 MC/CUMM (3.8-5.5); Red Cell Distribution Width 15.5 % (9.3-17.3); White Blood Count 8.8 T/CUMM (4-12)
[2016-05-22 04:56] LABS: Calcium 7.7 MG/DL (8.5-10.1); Magnesium 1.6 MG/DL (1.8-2.4); Osmolality,Calculated 296.4 MOS/KG (273-304); Potassium 3.3 MMOL/L (3.5-5.1)
[2016-05-22 06:44] LABS: Band Neutrophils 3 % (0-10); Lymphocytes 5 % (20-55); Myelocytes 2 %; Nucleated Red Blood Cells 2 (0-5); Segmented Neutrophils 90 % (50-85); Total Cells Counted 100
[2016-05-22 06:45] LABS: Howell-Jolly Bodies Few
[2016-05-22 06:46] LABS: Anisocytosis 1+; Hypochromasia 1+; Platelet Estimate Decreased; Target Cells Few
[2016-05-22] MEDS: ALBUTEROL/IPRATROPIUM 3 ML NEB RESP TX SCH ×5 (07:58→23:51)
--- NOTE | 2016-05-22 10:30 | Hospitalist Progress Note ---
Assessment and Plan (1) Influenza Status: Acute Current Visit: Yes (2) Sepsis Status: Acute Current Visit: Yes (3) Pneumonia and influenza Status: Acute Current Visit: Yes (4) Neutropenia Status: Acute Current Visit: Yes (5) Thrombocytopenia Status: Acute Current Visit: Yes (6) Pancytopenia Status: Acute Current Visit: Yes (7) Atrial fibrillation with RVR Status: Acute Current Visit: Yes (8) Hypokalemia Status: Acute Current Visit: Yes (9) Hypomagnesemia Status: Acute Current Visit: Yes Hospitalist: Subjective Interval history: Doing well with no acute symptoms. Still is coughing but has essentially dry cough. Overall feels a little bit better. She states she is breathing easier. Her heart rate is better controlled as well but still around 110. Assessment and plan 05/22/2016: SIRS with acute influenza strep and possible pneumonia Immunosuppression with non-Hodgkin's lymphoma in periodic treatments Pancytopenia with white count improving and persistent thrombocytopenia Hypomagnesemia Atrial fibrillation with RVR versus atrial tachycardia Continue current treatment and may switch her to oral agents tomorrow. hrombocytopenia still needs to be watched closely. We will supplement magnesium. Continue current treatment otherwise. She's not being anticoagulated due to thrombocytopenia. Exam - Constitutional Vitals: Period Temp Pulse Resp BP Sys/Li Pulse Ox Last 24 Hr 97.0 F-99.8 F 87-117 16-24 129-182/66-91 91-99 Exam: Gen.: In no acute distress Head and neck: Pupils are reactive neck is supple Cardiovascular: S1-S2 with regular rate and rhythm Respiratory: Lungs mild rhonchi bilaterally Abdomen: Soft, bowel sounds are positive Extremities: No edema Neuro: Grossly intact Results - Labs CBC & BMP: 05/22/16 03:53 05/22/16 03:53 Lab Results: I have reviewed the past 24 hour labs
[2016-05-22] MEDS: OSELTAMIVIR 30 MG CAPSULE PO SCH ×2 (10:31→21:15)
[2016-05-22] MEDS: POTASSIUM CHLORIDE 20 MEQ TABLET PO SCH ×2 (10:32→21:01)
[2016-05-22] MEDS: ASCORBIC ACID 500 MG TABLET PO SCH ×2 (10:32→21:01)
[2016-05-22] MEDS: METOPROLOL TARTRATE 50 MG TABLET PO SCH ×2 (10:32→21:01)
[2016-05-22] MEDS ORDERED: MAGNESIUM SULF RIDER 2 GM in PREMIX 1 EACH IV ONE ×2 (10:32→12:01)
[2016-05-22] MEDS: LINEZOLID INJ 600 MG in PREMIX 1 EACH IV SCH ×2 (10:33→21:05)
[2016-05-22] MEDS: DESITIN 4OZ/NYSTATIN 15 GRAM MIXTURE PASTE TOP SCH ×2 (10:43→21:03)
[2016-05-22] MEDS ORDERED: POTASSIUM CHLORIDE 20 MEQ TABLET PO ONE (12:02)
--- NOTE | 2016-05-22 12:50 | Cardiology Progress Note ---
Assessment and Plan (1) Tachycardia Status: Acute Assessment and plan: The patient has sinus tachycardia with frequent premature atrial contractions. This is multifactorial. Her echocardiogram shows preserved left ventricular systolic function. Fortunately, this is asymptomatic. I'm going to optimize her electrolytes and medical management to try to improve her heart rate and ectopy. Current Visit: Yes (2) Irregular cardiac rhythm Status: Acute Current Visit: Yes (3) Pancytopenia Status: Acute Current Visit: Yes (4) Pneumonia and influenza Status: Acute Current Visit: Yes (5) Sepsis Status: Acute Current Visit: Yes (6) Hypokalemia Status: Acute Current Visit: Yes (7) Hypomagnesemia Status: Acute Current Visit: Yes Cardiology - PN: Subj Interval history: The patient is now on the telemetry unit. She is slowly improving. She denies any cardiac symptoms at this time such as palpitations or angina. She still has a cough, though she is slowly better. She has sinus tachycardia with frequent ectopy on telemetry. Her electrolytes are quite depleted so on going to address that today. Current Medications Acetaminophen (Tylenol Liquid) 650 mg PO Q4H PRN PRN Reason: Fever, Headache, Mild Pain Last Admin: 05/18/16 22:02 Dose: 650 mg Acetylcysteine (Mucomyst 20% (Apap Od)) 200 mg PO Q4H [facility] Stop: 05/23/16 03:01 Last Admin: 05/22/16 10:54 Dose: 200 mg Albuterol/Ipratropium (Duoneb) 3 ml RESP TX RT Q6H [facility] Last Admin: 05/22/16 07:58 Dose: 3 ml Ascorbic Acid (Vitamin C Tab) 1,000 mg PO BID [facility] Last Admin: 05/22/16 10:32 Dose: 1,000 mg Clorazepate Dipotassium (Tranxene) 3.75 mg PO Q8H PRN PRN Reason: Anxiety Last Admin: 05/21/16 20:43 Dose: 3.75 mg Dextrose/Water (D50) 25 gm IV PRN PRN PRN Reason: Hypoglycemia with IV access Last Admin: 05/19/16 08:25 Dose: 25 gm Diltiazem HCl (Cardizem Cd) 240 mg PO DAILY [facility] Glucagon () 1 mg IM PRN PRN PRN Reason: Hypoglycemia w/o IV access Linezolid 600 mg/ Premix 300 mls @ 300 mls/hr IV Q12H [facility] Last Admin: 05/22/16 10:33 Dose: 150 mls/hr Potassium Chloride 40 meq/ (Sodium Chloride) 1,020 mls @ 100 mls/hr IV .[id number] [facility] Last Admin: 05/22/16 06:19 Dose: 100 mls/hr Meropenem 1,000 mg/ Sodium (Chloride) 100 mls @ 200 mls/hr IV Q12H [facility] Last Infusion: 05/22/16 03:30 Dose: Infused Magnesium Sulfate 2 gm/ Premix 50 mls @ 25 mls/hr IV ONCE ONE Stop: 05/22/16 14:00 Insulin Glargine (Lantus) 16 unit SUBCUT BEDTIME [facility] Last Admin: 05/21/16 20:45 Dose: Not Given Insulin Human Regular (Humulin R) 0 unit SUBCUT Q6HR [facility] PRN Reason: Protocol Last Admin: 05/22/16 05:41 Dose: Not Given Metoprolol Tartrate (Lopressor Tab) 50 mg PO BID [facility] Last Admin: 05/22/16 10:32 Dose: 50 mg Morphine Sulfate () 2 mg IV Q4H PRN PRN Reason: Pain Severe (8-10) Nystatin/Zinc Oxide (Skin Protectant Mixture) 1 applic TOP BID [facility] Last Admin: 05/22/16 10:43 Dose: 1 applic Ondansetron HCl (Zofran Inj) 4 mg IV Q4H PRN PRN Reason: Nausea Oseltamivir Phosphate (Tamiflu Cap) 30 mg PO BID [facility] Last Admin: 05/22/16 10:31 Dose: 30 mg Potassium Chloride (K Dur) 20 meq PO BID [facility] Last Admin: 05/22/16 10:32 Dose: 20 meq Zaleplon (Sonata) 5 mg PO BEDTIME PRN PRN Reason: Sleep Last Admin: 05/21/16 20:44 Dose: 5 mg Exam (Progress Note) - Constitutional Vitals: Period Temp Pulse Resp BP Sys/Li Pulse Ox Last 24 Hr 97.0 F-99.8 F 88-117 16-20 129-182/70-91 91-98 Exam: General: Frail, elderly in no acute distress HEENT: Normocephalic, atraumatic Neck: Supple Neck, Midline Trachea Cardiac: Irregular Rhythm, mild tachycardia, No Murmur, no gallop, no rub Lungs: Mild expiratory wheeze Neuro: Cranial Nerve 2-12 Intact, diffuse generalized weakness Abdomen: Soft, Active Bowel Sounds, No Masses, No Pulsations/Bruits Skin: Normal color, no rash Extremities: No Clubbing, No Cyanosis, No Edema, Normal Upper Extr. Pulses Musculoskeletal: Generalized muscular wasting Psychiatric: The patient has a flat affect and appears depressed. Result/EKG - Labs CBC & BMP: 05/22/16 03:53 05/22/16 03:53 Lab Results: I have reviewed the past 24 hour labs Labs: Laboratory Results - last 24 hr 05/21/16 05/22/16 05/22/16 15:45 03:53 03:53 WBC 8.8 D RBC 3.36 L Hgb 10.3 L Hct 30.4 L MCV 90.5 MCH 31 MCHC 33.9 RDW 15.5 Plt Count 56 L MPV 12.9 H Neut % (Auto) 74.1 H Lymph % (Auto) 13.8 L [place] % (Auto) 5.5 Eos % (Auto) 1.0 Baso % (Auto) 0.1 Neut # (Auto) 6.5 Lymph # (Auto) 1.2 L [place] # (Auto) 0.5 Eos # (Auto) 0.1 Baso # (Auto) 0.0 Total Counted 100 Immature Gran % 5.5 Nucleated RBC % 1.7 Immature Gran # 0.48 Segmented Neutrophils 90 H Band Neutrophils 3 Lymphocytes 5 L Myelocytes 2 Nucleated RBCs 2 Nucleated RBCs # 0.15 Platelet Estimate Decreased Hypochromasia 1+ Anisocytosis 1+ Target Cells Few [place] Bodies Few Sodium 147 H Potassium 3.3 L Chloride 109 H Carbon Dioxide 23 Anion Gap 18.3 H BUN 25 H Creatinine 1.00 GFR Calculation 54 BUN/Creatinine Ratio 25.00 H Glucose 119 H POC Glucose 148 H Calculated Osmolality 296.4 Calcium 7.7 L Magnesium 1.6 L 05/22/16 05/22/16 05/22/16 04:21 07:59 11:19 WBC RBC Hgb Hct MCV MCH MCHC RDW Plt Count MPV Neut % (Auto) Lymph % (Auto) [place] % (Auto) Eos % (Auto) Baso % (Auto) Neut # (Auto) Lymph # (Auto) [place] # (Auto) Eos # (Auto) Baso # (Auto) Total Counted Immature Gran % Nucleated RBC % Immature Gran # Segmented Neutrophils Band Neutrophils Lymphocytes Myelocytes Nucleated RBCs Nucleated RBCs # Platelet Estimate Hypochromasia Anisocytosis Target Cells [place] Bodies Sodium Potassium Chloride Carbon Dioxide Anion Gap BUN Creatinine GFR Calculation BUN/Creatinine Ratio Glucose POC Glucose 109 H 103 198 H Calculated Osmolality Calcium Magnesium - EKG EKG results: interpreted by me
[2016-05-22] MEDS: DILTIAZEM CD 240 MG CAPSULE PO SCH (12:58)
[2016-05-22] MEDS: INSULIN GLARGINE 100 UNIT/ML SUBCUT SCH (21:03)
[2016-05-23] MEDS: INSULIN REGULAR 100 UNIT/ML SUBCUT SCH ×4 (01:00→17:07)
[2016-05-23] MEDS: MEROPENEM 1,000 MG in SODIUM CHLORIDE 0.9% 100 ML IV SCH ×2 (02:07→14:05)
[2016-05-23] MEDS: CLORAZEPATE 7.5 MG TABLET PO PRN (02:45)
[2016-05-23] MEDS: ACETYLCYSTEINE 20% 6,000 MG/30 ML VIAL PO SCH (03:40)
[2016-05-23 05:27] LABS: Basophils % 0.1 % (0.0-0.8); Eosinophils # 0.1 10*3/uL (0.0-0.87); Eosinophils % 1.2 % (0.00-10.9); Hematocrit 27.7 VOL% (35.7-47.0); Hemoglobin 9.4 GM/DL (12.0-16.0); Immature Granulocytes % 6.5 %; Immature Granulocytes Absolute 0.52 #; Lymphocytes # 1.3 10*3/uL (1.4-4.0); Lymphocytes % 16.2 % (21.3-54.2); Mean Corpuscular HGB Conc 33.9 GM/DL (32-36); Mean Corpuscular Hemoglobin 31 PG (27-34); Mean Corpuscular Volume 92.3 FL (87-102); Monocytes # 0.4 10*3/uL (0.11-0.8); Monocytes % 5.2 % (1.7-12.7); NRBC # 0.09 10*3/uL; Neutrophils # 5.7 10*3/uL (1.4-7.4); Neutrophils % 70.8 % (38.7-73.9); Platelet Count 62 T/CUMM (130-400); Red Cell Distribution Width 15.4 % (9.3-17.3)
[2016-05-23 06:10] LABS: Albumin 1.9 G/DL (3.4-5.0); Calcium 7.7 MG/DL (8.5-10.1); Osmolality,Calculated 291.7 MOS/KG (273-304); Potassium 4.3 MMOL/L (3.5-5.1); Total Protein 4.5 G/DL (6.4-8.3)
[2016-05-23 06:51] LABS: Hypochromasia 1+
[2016-05-23] MEDS: POTASSIUM CHLORIDE INJ 40 MEQ in SODIUM CHLORIDE 0.45% 1,000 ML IV SCH ×2 (08:07→18:44)
[2016-05-23] MEDS: ALBUTEROL/IPRATROPIUM 3 ML NEB RESP TX SCH ×3 (08:14→19:36)
--- NOTE | 2016-05-23 09:15 | Hospitalist Progress Note ---
Assessment and Plan (1) Influenza Status: Acute Current Visit: Yes (2) Sepsis Status: Acute Current Visit: Yes (3) Pneumonia and influenza Status: Acute Current Visit: Yes (4) Neutropenia Status: Acute Current Visit: Yes (5) Thrombocytopenia Status: Acute Current Visit: Yes (6) Pancytopenia Status: Acute Current Visit: Yes (7) Atrial fibrillation with RVR Status: Acute Current Visit: Yes (8) Hypokalemia Status: Acute Current Visit: Yes (9) Hypomagnesemia Status: Acute Current Visit: Yes Hospitalist: Subjective Interval history: Overall continues to improve. She feels stronger. Heart rate is also better controlled. Her bronchial cultures grew several different box with 3 gram- negative rods in one gram-positive cocci. Assessment and plan 05/23/2016: Status post influenza/strep and pneumonia thrombocytopenia Lymphoma Patient has an immunosuppressed status as she gets some treatment for lymphoma every 2 months. Clinically she is improving. I will switch her to oral Zyvox today and hopefully tomorrow her medium can be switched to an oral agent that' ll cover gram negatives. Platelet count has started to up trended. I've advised her just get out of bed today. Hopefully she can be discharged home in the next few days. Exam - Constitutional Vitals: Period Temp Pulse Resp BP Sys/Li Pulse Ox Last 24 Hr 96.7 F-99.1 F 69-110 16-20 133-150/60-86 90-98 Exam: Gen.: In no acute distress Head and neck: Pupils are reactive neck is supple Cardiovascular: S1-S2 with regular rate and rhythm Respiratory: Lungs mild rhonchi bilaterally Abdomen: Soft, bowel sounds are positive Extremities: No edema Neuro: Grossly intact Results - Labs CBC & BMP: 05/23/16 04:34 05/23/16 04:34 Lab Results: I have reviewed the past 24 hour labs
[2016-05-23] MEDS: LINEZOLID 600 MG TABLET PO SCH ×2 (09:20→20:09)
[2016-05-23] MEDS: POTASSIUM CHLORIDE 20 MEQ TABLET PO SCH ×2 (09:21→20:09)
[2016-05-23] MEDS: OSELTAMIVIR 30 MG CAPSULE PO SCH ×2 (09:21→20:09)
[2016-05-23] MEDS: METOPROLOL TARTRATE 50 MG TABLET PO SCH ×2 (09:21→20:10)
[2016-05-23] MEDS: DILTIAZEM CD 240 MG CAPSULE PO SCH (09:21)
[2016-05-23] MEDS: ASCORBIC ACID 500 MG TABLET PO SCH ×2 (09:21→20:09)
[2016-05-23] MEDS: DESITIN 4OZ/NYSTATIN 15 GRAM MIXTURE PASTE TOP SCH ×2 (09:22→20:34)
[2016-05-23] MEDS ORDERED: MAGNESIUM SULF RIDER 2 GM in PREMIX 1 EACH IV ONE (11:14)
--- NOTE | 2016-05-23 11:40 | Cardiology Progress Note ---
Assessment and Plan (1) Tachycardia Status: Acute Assessment and plan: The patient has sinus tachycardia with frequent premature atrial contractions. This is multifactorial. Her echocardiogram shows preserved left ventricular systolic function. Fortunately, this is asymptomatic. I'm going to optimize her electrolytes and medical management to try to improve her heart rate and ectopy. From a cardiac standpoint, I think she is doing well. I'm going to drop off of her case. Please call if we can be of further assistance. Current Visit: Yes (2) Irregular cardiac rhythm Status: Acute Current Visit: Yes (3) Pancytopenia Status: Acute Current Visit: Yes (4) Pneumonia and influenza Status: Acute Current Visit: Yes (5) Sepsis Status: Acute Current Visit: Yes (6) Hypokalemia Status: Acute Current Visit: Yes (7) Hypomagnesemia Status: Acute Current Visit: Yes Cardiology - PN: Subj Interval history: The patient is feeling much better. Her heart rate/rhythm is better controlled. I'm going to make one more adjustment in her cardiac medications which I think will do her well. Otherwise, I don't have anything to add at this time. She denies any new cardiac related symptoms. Her breathing is improving each day. Current Medications Acetaminophen (Tylenol Liquid) 650 mg PO Q4H PRN PRN Reason: Fever, Headache, Mild Pain Last Admin: 05/18/16 22:02 Dose: 650 mg Albuterol/Ipratropium (Duoneb) 3 ml RESP TX RT Q6H PAMELA Last Admin: 05/23/16 08:14 Dose: 3 ml Ascorbic Acid (Vitamin C Tab) 1,000 mg PO BID [facility] Last Admin: 05/23/16 09:21 Dose: 1,000 mg Clorazepate Dipotassium (Tranxene) 3.75 mg PO Q8H PRN PRN Reason: Anxiety Last Admin: 05/23/16 02:45 Dose: 3.75 mg Dextrose/Water (D50) 25 gm IV PRN PRN PRN Reason: Hypoglycemia with IV access Last Admin: 05/19/16 08:25 Dose: 25 gm Diltiazem HCl (Cardizem Cd) 360 mg PO DAILY [facility] Glucagon () 1 mg IM PRN PRN PRN Reason: Hypoglycemia w/o IV access Potassium Chloride 40 meq/ (Sodium Chloride) 1,020 mls @ 100 mls/hr IV .[id number] [facility] Last Admin: 05/23/16 08:07 Dose: Not Given Meropenem 1,000 mg/ Sodium (Chloride) 100 mls @ 200 mls/hr IV Q12H [facility] Last Infusion: 05/23/16 02:37 Dose: Infused Magnesium Sulfate 2 gm/ Premix 50 mls @ 25 mls/hr IV ONCE ONE Stop: 05/23/16 13:13 Insulin Glargine (Lantus) 16 unit SUBCUT BEDTIME [facility] Last Admin: 05/22/16 21:03 Dose: 16 unit Insulin Human Regular (Humulin R) 0 unit SUBCUT Q6HR PAMELA PRN Reason: Protocol Last Admin: 05/23/16 06:12 Dose: Not Given Linezolid (Zyvox Tab) 600 mg PO Q12HR [facility] Last Admin: 05/23/16 09:20 Dose: 600 mg Metoprolol Tartrate (Lopressor Tab) 50 mg PO BID [facility] Last Admin: 05/23/16 09:21 Dose: 50 mg Morphine Sulfate () 2 mg IV Q4H PRN PRN Reason: Pain Severe (8-10) Nystatin/Zinc Oxide (Skin Protectant Mixture) 1 applic TOP BID [facility] Last Admin: 05/23/16 09:22 Dose: Not Given Ondansetron HCl (Zofran Inj) 4 mg IV Q4H PRN PRN Reason: Nausea Oseltamivir Phosphate (Tamiflu Cap) 30 mg PO BID [facility] Last Admin: 05/23/16 09:21 Dose: 30 mg Potassium Chloride (K Dur) 20 meq PO BID [facility] Last Admin: 05/23/16 09:21 Dose: 20 meq Zaleplon (Sonata) 5 mg PO BEDTIME PRN PRN Reason: Sleep Last Admin: 05/21/16 20:44 Dose: 5 mg Exam (Progress Note) - Constitutional Vitals: Period Temp Pulse Resp BP Sys/Li Pulse Ox Last 24 Hr 96.7 F-99.1 F 69-110 16-20 133-150/60-86 90-98 Exam: General: Frail, elderly in no acute distress HEENT: Normocephalic, atraumatic Neck: Supple Neck, Midline Trachea Cardiac: Irregular Rhythm, mild tachycardia, No Murmur, no gallop, no rub Lungs: Coarse breath sounds Neuro: Cranial Nerve 2-12 Intact, diffuse generalized weakness Abdomen: Soft, Active Bowel Sounds, No Masses, No Pulsations/Bruits Skin: Normal color, no rash Extremities: No Clubbing, No Cyanosis, No Edema, Normal Upper Extr. Pulses Musculoskeletal: Generalized muscular wasting Psychiatric: The patient has a flat affect and appears depressed. Result/EKG - Labs CBC & BMP: 05/23/16 04:34 05/23/16 04:34 Lab Results: I have reviewed the past 24 hour labs Labs: Laboratory Results - last 24 hr 05/19/16 05/22/16 05/22/16 17:35 11:19 15:39 WBC RBC Hgb Hct MCV MCH MCHC RDW Plt Count MPV Neut % (Auto) Lymph % (Auto) Hayes % (Auto) Eos % (Auto) Baso % (Auto) Neut # (Auto) Lymph # (Auto) Hayes # (Auto) Eos # (Auto) Baso # (Auto) Immature Gran % Nucleated RBC % Immature Gran # Nucleated RBCs # Hypochromasia Sodium Potassium Chloride Carbon Dioxide Anion Gap BUN Creatinine GFR Calculation BUN/Creatinine Ratio Glucose POC Glucose 198 H 168 H Calculated Osmolality Calcium Total Bilirubin AST ALT Alkaline Phosphatase Total Protein Albumin Globulin Albumin/Globulin Ratio Ur L.pneumophila Ag Negative Ur Strep pneumoniae Ag Negative 05/23/16 05/23/16 05/23/16 02:10 04:34 04:34 WBC 8.0 RBC 3.00 L Hgb 9.4 L Hct 27.7 L MCV 92.3 MCH 31 MCHC 33.9 RDW 15.4 Plt Count 62 L MPV 13.0 H Neut % (Auto) 70.8 Lymph % (Auto) 16.2 L Hayes % (Auto) 5.2 Eos % (Auto) 1.2 Baso % (Auto) 0.1 Neut # (Auto) 5.7 Lymph # (Auto) 1.3 L Hayes # (Auto) 0.4 Eos # (Auto) 0.1 Baso # (Auto) 0.0 Immature Gran % 6.5 Nucleated RBC % 1.1 Immature Gran # 0.52 Nucleated RBCs # 0.09 Hypochromasia 1+ Sodium 145 Potassium 4.3 Chloride 108 H Carbon Dioxide 23 Anion Gap 18.3 H BUN 23 H Creatinine 0.90 GFR Calculation 61 BUN/Creatinine Ratio 25.00 H Glucose 105 POC Glucose 176 H Calculated Osmolality 291.7 Calcium 7.7 L Total Bilirubin 1.00 AST 7 ALT 10 L Alkaline Phosphatase 69 Total Protein 4.5 L Albumin 1.9 L Globulin 2.6 Albumin/Globulin Ratio 0.7 L Ur L.pneumophila Ag Ur Strep pneumoniae Ag 05/23/16 05/23/16 05:40 07:42 WBC RBC Hgb Hct MCV MCH MCHC RDW Plt Count MPV Neut % (Auto) Lymph % (Auto) Hayes % (Auto) Eos % (Auto) Baso % (Auto) Neut # (Auto) Lymph # (Auto) Hayes # (Auto) Eos # (Auto) Baso # (Auto) Immature Gran % Nucleated RBC % Immature Gran # Nucleated RBCs # Hypochromasia Sodium Potassium Chloride Carbon Dioxide Anion Gap BUN Creatinine GFR Calculation BUN/Creatinine Ratio Glucose POC Glucose 87 68 L Calculated Osmolality Calcium Total Bilirubin AST ALT Alkaline Phosphatase Total Protein Albumin Globulin Albumin/Globulin Ratio Ur L.pneumophila Ag Ur Strep pneumoniae Ag - EKG EKG results: interpreted by me
[2016-05-23] MEDS: INSULIN GLARGINE 100 UNIT/ML SUBCUT SCH (20:34)
[2016-05-24] MEDS: ALBUTEROL/IPRATROPIUM 3 ML NEB RESP TX SCH ×4 (00:23→19:55)
[2016-05-24] MEDS: INSULIN REGULAR 100 UNIT/ML SUBCUT SCH ×4 (00:51→19:10)
[2016-05-24] MEDS: MEROPENEM 1,000 MG in SODIUM CHLORIDE 0.9% 100 ML IV SCH (02:16)
[2016-05-24 05:40] LABS: Basophils % 0.1 % (0.0-0.8); Eosinophils # 0.2 10*3/uL (0.0-0.87); Eosinophils % 1.9 % (0.00-10.9); Hematocrit 26.8 VOL% (35.7-47.0); Immature Granulocytes % 6.1 %; Immature Granulocytes Absolute 0.48 #; Lymphocytes # 1.3 10*3/uL (1.4-4.0); Lymphocytes % 16.6 % (21.3-54.2); Mean Corpuscular HGB Conc 33.6 GM/DL (32-36); Mean Corpuscular Hemoglobin 31 PG (27-34); Mean Corpuscular Volume 92.7 FL (87-102); Mean Platelet Volume 13.4 FL (9.6-12.0); Monocytes # 0.4 10*3/uL (0.11-0.8); Monocytes % 5.2 % (1.7-12.7); NRBC # 0.04 10*3/uL; Neutrophils # 5.5 10*3/uL (1.4-7.4); Neutrophils % 70.1 % (38.7-73.9); Platelet Count 60 T/CUMM (130-400); Red Blood Count 2.89 MC/CUMM (3.8-5.5); Red Cell Distribution Width 15.2 % (9.3-17.3); White Blood Count 7.8 T/CUMM (4-12)
[2016-05-24 06:03] LABS: Hypochromasia 1+; Lymphocytes 7 % (20-55); Ovalocytes Slight; Platelet Estimate Decreased; Segmented Neutrophils 87 % (50-85); Total Cells Counted 100
[2016-05-24 06:12] LABS: Albumin 1.7 G/DL (3.4-5.0); Bilirubin,Total 0.8 MG/DL (0.2-1.0); Calcium 7.6 MG/DL (8.5-10.1); Total Protein 4.4 G/DL (6.4-8.3)
[2016-05-24] MEDS: POTASSIUM CHLORIDE INJ 40 MEQ in SODIUM CHLORIDE 0.45% 1,000 ML IV SCH (09:16)
[2016-05-24] MEDS: LINEZOLID 600 MG TABLET PO SCH ×2 (09:17→22:07)
[2016-05-24] MEDS: METOPROLOL TARTRATE 50 MG TABLET PO SCH ×2 (09:17→22:08)
[2016-05-24] MEDS: OSELTAMIVIR 30 MG CAPSULE PO SCH (09:17)
[2016-05-24] MEDS: ASCORBIC ACID 500 MG TABLET PO SCH ×2 (09:17→22:08)
[2016-05-24] MEDS: POTASSIUM CHLORIDE 20 MEQ TABLET PO SCH ×2 (09:17→22:07)
[2016-05-24] MEDS: DILTIAZEM CD 180 MG CAPSULE PO SCH (09:18)
[2016-05-24] MEDS: DESITIN 4OZ/NYSTATIN 15 GRAM MIXTURE PASTE TOP SCH ×2 (09:19→22:08)
--- NOTE | 2016-05-24 11:52 | Hospitalist Progress Note ---
Assessment and Plan (1) Pneumonia and influenza Status: Acute Assessment and plan: The patient was admitted to the hospital with pneumonia of the left lung superimposed upon influenza. The patient will continue antibiotic care with Cipro and linezolid. We will recheck electrolytes in the morning. The patient' s diet continue with controlled carbohydrates. We are monitoring the patient's glucometers and adjusting insulin as required. I will consult the watch caser to consider swing bed options. Current Visit: Yes (2) Influenza Status: Acute Current Visit: Yes (3) Sepsis Status: Acute Current Visit: Yes Hospitalist: Subjective Interval history: The patient has less cough and shortness of breath today. Her sputum cultures have returned with MRSA and Zyvox has been started. Exam - Constitutional Vitals: Period Temp Pulse Resp BP Sys/Li Pulse Ox Last 24 Hr 97.6 F-99.2 F 86-97 16-20 118-145/58-71 92-98 Exam: Constitutional System: Mild distress. No tremulousness. Head: Normocephalic, atraumatic. Ears, Nose and Throat System: No evidence of Otitis or Mastoiditis. No epistaxis or discharge Eyes System: Pupils equal, round, and reactive. Extraocular muscles intact. Neck: Supple, without adenopathy, No jugular venous distention. No thyromegaly , neck mass, or prior surgery apparent. Respiratory System: Chest with few rhonchi in bases to auscultation. Cardiovascular System: Heart with regular rate and rhythm. No murmur. GI System: Abdomen soft, nontender. Normo active bowel sounds present. Musculoskeletal System: limbs with no pedal edema. Full distal pulses. Neurological System: No discernable sensory deficit. No aphasia Psychiatric System: Conversation is rational Results - Labs CBC & BMP: 05/24/16 04:53 05/24/16 04:53 Lab Results: I have reviewed the past 24 hour labs
[2016-05-24] MEDS: CIPROFLOXACIN 500 MG TABLET PO SCH ×2 (12:38→22:07)
[2016-05-24 14:57] LABS: Apearance,Urine CLEAR (Clear); Bilirubin,Urine Negative (Negative); Blood, Urine Negative (Negative); Glucose,Urine (UA) 50 mg/dL (Negative); Ketones,Urine Negative (Negative); Nitrite,Urine Negative (Negative); Protein,Urine Negative; RBC,Urine 2 /HPF (0-4); Squamous Epithelial Cell,Urine Occasional /HPF (0-10); Urine Color Straw (Yellow); Urine Specific Gravity 1.006 (1.001-1.035); Urine Urobilinogen < 2.0 EU/DL (0.2-1.0); WBC,Urine 3 /HPF (0-6)
[2016-05-24] MEDS ORDERED: OSELTAMIVIR 75 MG CAPSULE PO SCH (21:00)
[2016-05-24] MEDS: CLORAZEPATE 7.5 MG TABLET PO PRN (22:07)
[2016-05-24] MEDS: ZALEPLON 5 MG CAPSULE PO PRN (22:07)
[2016-05-24] MEDS: INSULIN GLARGINE 100 UNIT/ML SUBCUT SCH (22:23)
[2016-05-25] MEDS: ALBUTEROL/IPRATROPIUM 3 ML NEB RESP TX SCH ×4 (00:37→21:11)
[2016-05-25] MEDS: INSULIN REGULAR 100 UNIT/ML SUBCUT SCH ×4 (01:45→17:07)
[2016-05-25 04:58] LABS: Basophils % 0.1 % (0.0-0.8); Eosinophils # 0.2 10*3/uL (0.0-0.87); Eosinophils % 2.4 % (0.00-10.9); Hematocrit 27.4 VOL% (35.7-47.0); Hemoglobin 8.9 GM/DL (12.0-16.0); Immature Granulocytes % 7.5 %; Immature Granulocytes Absolute 0.52 #; Lymphocytes # 0.9 10*3/uL (1.4-4.0); Lymphocytes % 13.2 % (21.3-54.2); Mean Corpuscular HGB Conc 32.5 GM/DL (32-36); Mean Corpuscular Hemoglobin 31 PG (27-34); Mean Corpuscular Volume 94.5 FL (87-102); Mean Platelet Volume 12.7 FL (9.6-12.0); Monocytes # 0.4 10*3/uL (0.11-0.8); Monocytes % 5.6 % (1.7-12.7); NRBC # 0.03 10*3/uL; Neutrophils # 4.9 10*3/uL (1.4-7.4); Neutrophils % 71.2 % (38.7-73.9); Platelet Count 63 T/CUMM (130-400); Red Cell Distribution Width 14.9 % (9.3-17.3)
[2016-05-25 05:21] LABS: Band Neutrophils 2 % (0-10); Eosinophils 2 % (0-10); Hypochromasia 1+; Lymphocytes 9 % (20-55); Platelet Estimate Decreased; Segmented Neutrophils 84 % (50-85); Total Cells Counted 100
[2016-05-25 05:34] LABS: Albumin 1.8 G/DL (3.4-5.0); Bilirubin,Total 0.7 MG/DL (0.2-1.0); Calcium 7.9 MG/DL (8.5-10.1); Potassium 4.8 MMOL/L (3.5-5.1); Total Protein 4.6 G/DL (6.4-8.3)
[2016-05-25] MEDS: POTASSIUM CHLORIDE INJ 40 MEQ in SODIUM CHLORIDE 0.45% 1,000 ML IV SCH ×3 (08:10→10:20)
[2016-05-25] MEDS: DILTIAZEM CD 180 MG CAPSULE PO SCH (10:10)
[2016-05-25] MEDS: LINEZOLID 600 MG TABLET PO SCH ×2 (10:10→22:25)
[2016-05-25] MEDS: CIPROFLOXACIN 500 MG TABLET PO SCH ×2 (10:11→22:29)
[2016-05-25] MEDS: ASCORBIC ACID 500 MG TABLET PO SCH ×2 (10:11→22:26)
[2016-05-25] MEDS: METOPROLOL TARTRATE 50 MG TABLET PO SCH ×2 (10:11→22:26)
[2016-05-25] MEDS: POTASSIUM CHLORIDE 20 MEQ TABLET PO SCH ×2 (10:11→22:24)
[2016-05-25] MEDS: DESITIN 4OZ/NYSTATIN 15 GRAM MIXTURE PASTE TOP SCH ×2 (10:11→22:24)
[2016-05-25] MEDS ORDERED: FUROSEMIDE 40 MG/4 ML VIAL IV ONE (10:15)
--- NOTE | 2016-05-25 10:18 | Hospitalist Progress Note ---
Assessment and Plan (1) Pneumonia and influenza Status: Acute Assessment and plan: The patient was admitted to the hospital with pneumonia of the left lung superimposed upon influenza. The patient will continue oral antibiotic care with Cipro and linezolid. Discontinue IV fluid and give some Lasix to reduce lung water. The patient's diet continue with controlled carbohydrates. We are monitoring the patient's glucometers and adjusting insulin as required. I will continue coordination with t the complex case manager to consider swing bed options. Current Visit: Yes (2) Influenza Status: Acute Current Visit: Yes (3) Sepsis Status: Acute Current Visit: Yes Hospitalist: Subjective Interval history: The patient has less cough today and sputum production continues to improve. The patient does not have any fever. The patient is cooperative with physical therapy and was able to ambulate with walker and minimal assist inside the room today. I had family discussion with the patient and her concerning next option. They wish to coordinate care with Dr. Mendoza her oncologist and are also considering swing bed for strengthening prior to discharge home. I have been coordinating care with the complex case manager concerning the patient's options. Exam - Constitutional Vitals: Period Temp Pulse Resp BP Sys/Li Pulse Ox Last 24 Hr 97.7 F-98.8 F 61-102 17-30 102-123/51-73 92-99 Exam: Constitutional System: Mild distress with exertion. No tremulousness. Head: Normocephalic, atraumatic. Ears, Nose and Throat System: No evidence of Otitis or Mastoiditis. No epistaxis or discharge Eyes System: Pupils equal, round, and reactive. Extraocular muscles intact. Neck: Supple, without adenopathy, No jugular venous distention. No thyromegaly , neck mass, or prior surgery apparent. Respiratory System: Chest with rales in the mid lung melgar to auscultation. Cardiovascular System: Heart with regular rate and rhythm. No murmur. GI System: Abdomen soft, nontender. Normo active bowel sounds present. Musculoskeletal System: limbs with no pedal edema. Full distal pulses. Neurological System: No discernable sensory deficit. No aphasia Psychiatric System: Conversation is rational Results - Labs CBC & BMP: 05/25/16 04:12 05/25/16 04:12 Lab Results: I have reviewed the past 24 hour labs
[2016-05-25] MEDS ORDERED: TUBERCULIN SKIN TEST 0.1 ML SYRINGE INTRADERM ONE (10:31)
--- NOTE | 2016-05-25 10:39 | Case Mgmt Physician Query Form ---
TB Signs and Symptoms Screening ([place]) INSTRUCTIONS: To be completed annually on residents/staff with a significant Tuberculin Skin Test (TST) upon admission/hire or a prior significant TST. To be completed on all staff at hire. Please respond to each listed symptom with an (X) in either the "YES" or "NO" box. Do you currently have any of the following symptoms: YES NO ( ) (X ) A cough If yes, is it: ( ) Productive ( ) Non- productive ( ) ( X) Hemoptysis (spitting up blood) ( ) (X ) Chest pains ( ) (X ) Weight Loss ( ) (X ) Fever ( ) (X ) Night Sweats ( ) ( X) Weakness ( ) (X ) Loss of Appetite ( ) ( X) Difficulty Breathing If you answered YES" to any of the above questions, how long have symptoms been present? Comments: If you have any questions, please contact me. Thank you, Radha VITALE P: [phone] F: [phone] E: [email or web address]
--- NOTE | 2016-05-25 15:52 | XRay Report ---
XR chest 1V Indication: Swing bed placement Comparison: 17 May 2016 Findings: The heart and mediastinum are normal in size and configuration. The pulmonary vascularity is normal in caliber. There is increased left lower lung density and suggestion of small effusion. No other lung infiltrates, effusions, pneumothorax or other abnormality is demonstrated. Impression: Increased left lower lung density and small effusion, may indicate pneumonia. PROCEDURE INTERPRETED AT [facility] DEPARTMENT OF RADIOLOGY Final Report Signed by: Dr. Derrick Owen
[2016-05-25] MEDS: CLORAZEPATE 7.5 MG TABLET PO PRN (22:25)
[2016-05-25] MEDS: INSULIN GLARGINE 100 UNIT/ML SUBCUT SCH (22:29)
[2016-05-26] MEDS: ALBUTEROL/IPRATROPIUM 3 ML NEB RESP TX SCH ×4 (00:20→19:41)
[2016-05-26] MEDS: INSULIN REGULAR 100 UNIT/ML SUBCUT SCH ×4 (01:22→17:44)
--- NOTE | 2016-05-26 08:08 | XRay Report ---
XR chest 2V Date: 05/26/2016 4:00 AM History: Shortness of breath Comparison: 05/25/2016 Technique: PA and lateral chest Findings: The heart is normal in size. The lungs are overexpanded with reduced diffuse parenchymal findings. However there are ill-defined parenchymal densities with residual small right and [id number] left pleural effusion. Postoperative findings in the left upper quadrant/EG junction. Impression: Reduced infiltration but residual multifocal indeterminate pulmonary opacities. Continued follow-up is recommended to exclude underlying masses. PROCEDURE INTERPRETED AT [facility] DEPARTMENT OF RADIOLOGY Final Report Signed by: Dr. Berna Portillo
[2016-05-26] MEDS: DILTIAZEM CD 180 MG CAPSULE PO SCH (10:07)
[2016-05-26] MEDS: ASCORBIC ACID 500 MG TABLET PO SCH ×2 (10:08→21:39)
[2016-05-26] MEDS: CIPROFLOXACIN 500 MG TABLET PO SCH ×2 (10:08→21:40)
[2016-05-26] MEDS: LINEZOLID 600 MG TABLET PO SCH ×2 (10:08→21:46)
[2016-05-26] MEDS: METOPROLOL TARTRATE 50 MG TABLET PO SCH ×2 (10:09→21:39)
[2016-05-26] MEDS: POTASSIUM CHLORIDE 20 MEQ TABLET PO SCH ×2 (10:09→21:39)
[2016-05-26] MEDS: DESITIN 4OZ/NYSTATIN 15 GRAM MIXTURE PASTE TOP SCH ×2 (10:28→23:36)
[2016-05-26] MEDS: CLORAZEPATE 7.5 MG TABLET PO PRN (13:18)
[2016-05-26] MEDS ORDERED: FUROSEMIDE 40 MG/4 ML VIAL IV ONE (14:31)
--- NOTE | 2016-05-26 14:33 | Hospitalist Progress Note ---
Assessment and Plan (1) Pneumonia and influenza Status: Acute Assessment and plan: The patient was admitted to the hospital with pneumonia of the left lung superimposed upon influenza. The patient will continue oral antibiotic care with Cipro and linezolid. Discontinue IV fluid and give another dose Lasix to reduce lung water. The patient's diet continue with controlled carbohydrates. We are monitoring the patient's glucometers and adjusting insulin as required. I will continue coordination with the family service caseworker to consider swing bed options. Current Visit: Yes (2) Influenza Status: Acute Current Visit: Yes (3) Sepsis Status: Acute Current Visit: Yes Hospitalist: Subjective Interval history: Mrs. Aragon continues with slow incremental recovery from pneumonia and has developed some post sepsis pleural effusion on the left with pulmonary edema. She seems to be improving with diuresis. We will continue diuresis. Exam - Constitutional Vitals: Period Temp Pulse Resp BP Sys/Il Pulse Ox Last 24 Hr 97.3 F-99 F 62-98 16-24 95-117/49-57 95-99 Exam: Constitutional System: Mild distress with exertion. No tremulousness. Head: Normocephalic, atraumatic. Ears, Nose and Throat System: No evidence of Otitis or Mastoiditis. No epistaxis or discharge Eyes System: Pupils equal, round, and reactive. Extraocular muscles intact. Neck: Supple, without adenopathy, No jugular venous distention. No thyromegaly , neck mass, or prior surgery apparent. Respiratory System: Chest with rales in the mid lung melgar to auscultation. Cardiovascular System: Heart with regular rate and rhythm. No murmur. GI System: Abdomen soft, nontender. Normo active bowel sounds present. Musculoskeletal System: limbs with no pedal edema. Full distal pulses. Neurological System: No discernable sensory deficit. No aphasia Psychiatric System: Conversation is rational Results - Labs CBC & BMP: 05/25/16 04:12 05/25/16 04:12 Lab Results: I have reviewed the past 24 hour labs
[2016-05-26] MEDS: INSULIN GLARGINE 100 UNIT/ML SUBCUT SCH (21:36)
[2016-05-27] MEDS: INSULIN REGULAR 100 UNIT/ML SUBCUT SCH ×4 (00:52→18:41)
[2016-05-27] MEDS: ALBUTEROL/IPRATROPIUM 3 ML NEB RESP TX SCH ×4 (01:23→19:11)
[2016-05-27 05:11] LABS: Basophils % 0.7 % (0.0-0.8); Eosinophils # 0.2 10*3/uL (0.0-0.87); Hematocrit 27.8 VOL% (35.7-47.0); Immature Granulocytes % 14.6 %; Immature Granulocytes Absolute 0.82 #; Lymphocytes % 18.1 % (21.3-54.2); Mean Corpuscular HGB Conc 32.4 GM/DL (32-36); Mean Corpuscular Hemoglobin 31 PG (27-34); Mean Corpuscular Volume 95.5 FL (87-102); Mean Platelet Volume 12.9 FL (9.6-12.0); Monocytes # 0.3 10*3/uL (0.11-0.8); Monocytes % 4.6 % (1.7-12.7); NRBC # 0.02 10*3/uL; Neutrophils # 3.3 10*3/uL (1.4-7.4); Red Blood Count 2.91 MC/CUMM (3.8-5.5); Red Cell Distribution Width 14.6 % (9.3-17.3); White Blood Count 5.6 T/CUMM (4-12)
[2016-05-27 05:15] LABS: Platelet Count 85 T/CUMM (130-400)
[2016-05-27 05:41] LABS: Band Neutrophils 1 % (0-10); Eosinophils 4 % (0-10); Hypochromasia Slight; Lymphocytes 11 % (20-55); Platelet Estimate Decreased; Segmented Neutrophils 79 % (50-85); Total Cells Counted 100
[2016-05-27 05:42] LABS: Ovalocytes Slight
[2016-05-27 05:47] LABS: Calcium 8.3 MG/DL (8.5-10.1); Magnesium 1.8 MG/DL (1.8-2.4); Osmolality,Calculated 297.3 MOS/KG (273-304); Potassium 4.9 MMOL/L (3.5-5.1)
[2016-05-27] MEDS: CLORAZEPATE 7.5 MG TABLET PO PRN (09:18)
[2016-05-27] MEDS: CIPROFLOXACIN 500 MG TABLET PO SCH ×2 (09:18→20:42)
[2016-05-27] MEDS: DESITIN 4OZ/NYSTATIN 15 GRAM MIXTURE PASTE TOP SCH ×2 (09:19→23:55)
[2016-05-27] MEDS: ASCORBIC ACID 500 MG TABLET PO SCH ×2 (09:19→20:41)
[2016-05-27] MEDS: DILTIAZEM CD 180 MG CAPSULE PO SCH (09:19)
[2016-05-27] MEDS: METOPROLOL TARTRATE 50 MG TABLET PO SCH ×2 (09:19→20:41)
[2016-05-27] MEDS: POTASSIUM CHLORIDE 20 MEQ TABLET PO SCH ×2 (09:19→20:42)
[2016-05-27] MEDS: LINEZOLID 600 MG TABLET PO SCH ×2 (09:19→20:41)
--- NOTE | 2016-05-27 12:48 | Discharge Summary ---
Diagnosis - Discharge Diagnosis (1) Pneumonia and influenza Status: Resolved (2) Influenza Status: Resolved (3) Sepsis Status: Resolved Discharge Plan - Discharge Medications No Action Fexofenadine [Ramya] 180 mg PO DAILY PRN PRN Reason: Allergy Symptoms Metformin HCl 1,000 mg PO BID Irbesartan 300 mg PO DAILY Folic Acid Tab 1 mg PO BID Canagliflozin [Invokana] 100 mg PO DAILY Ferrous Sulfate Tab [Feosol Original Tab] 325 mg PO TID Pioglitazone HCl 15 mg PO DAILY Multivitamin (Centrum) [Centrum Tab] 1 tablet PO DAILY Ibuprofen Tab [Motrin Tab] 600 mg PO Q6H PRN PRN Reason: Fever, Headache, Mild Pain Metoprolol Succinate Xl [Toprol Xl] 50 mg PO DAILY - Follow Up or Referral - Forms/Instructions Exam - Constitutional Vitals: Period Temp Pulse Resp BP Sys/Li Pulse Ox Last 24 Hr 96.6 F-99.2 F 66-93 16-20 86-114/43-59 91-99 Discharge Results Procedures and tests throughout hospitalization: Pending Orders 05/20/16 01:55 Occult Blood, Stool Routine Labs on day of discharge: Labs from last 24 hours 05/27/16 05/27/16 05/27/16 11:27 07:26 06:33 WBC RBC Hgb Hct MCV MCH MCHC RDW Plt Count MPV Neut % (Auto) Lymph % (Auto) [place] % (Auto) Eos % (Auto) Baso % (Auto) Neut # (Auto) Lymph # (Auto) [place] # (Auto) Eos # (Auto) Baso # (Auto) Total Counted Immature Gran % Nucleated RBC % Immature Gran # Segmented Neutrophils Band Neutrophils Lymphocytes Monocytes Eosinophils Basophils Nucleated RBCs # Platelet Estimate Hypochromasia Ovalocytes Morphology Comment Sodium Potassium Chloride Carbon Dioxide Anion Gap BUN Creatinine GFR Calculation BUN/Creatinine Ratio Glucose POC Glucose 184 H 123 H 87 Calculated Osmolality Calcium Magnesium B-Natriuretic Peptide 05/27/16 05/27/16 05/27/16 04:34 04:34 04:34 WBC 5.6 RBC 2.91 L Hgb 9.0 L Hct 27.8 L MCV 95.5 MCH 31 MCHC 32.4 RDW 14.6 Plt Count 85 L D MPV 12.9 H Neut % (Auto) 59.0 Lymph % (Auto) 18.1 L [place] % (Auto) 4.6 Eos % (Auto) 3.0 Baso % (Auto) 0.7 Neut # (Auto) 3.3 Lymph # (Auto) 1.0 L [place] # (Auto) 0.3 Eos # (Auto) 0.2 Baso # (Auto) 0.0 Total Counted 100 Immature Gran % 14.6 Nucleated RBC % 0.4 Immature Gran # 0.82 Segmented Neutrophils 79 Band Neutrophils 1 Lymphocytes 11 L Monocytes 3 Eosinophils 4 Basophils 2.0 H Nucleated RBCs # 0.02 Platelet Estimate Decreased Hypochromasia Slight Ovalocytes Slight Morphology Comment Sodium 148 H Potassium 4.9 Chloride 109 H Carbon Dioxide 27 Anion Gap 16.9 H BUN 29 H Creatinine 1.20 H GFR Calculation 43 BUN/Creatinine Ratio 24.00 H Glucose 71 L POC Glucose Calculated Osmolality 297.3 Calcium 8.3 L Magnesium 1.8 B-Natriuretic Peptide 59 05/26/16 05/26/16 05/26/16 23:58 15:57 15:33 WBC RBC Hgb Hct MCV MCH MCHC RDW Plt Count MPV Neut % (Auto) Lymph % (Auto) [place] % (Auto) Eos % (Auto) Baso % (Auto) Neut # (Auto) Lymph # (Auto) [place] # (Auto) Eos # (Auto) Baso # (Auto) Total Counted Immature Gran % Nucleated RBC % Immature Gran # Segmented Neutrophils Band Neutrophils Lymphocytes Monocytes Eosinophils Basophils Nucleated RBCs # Platelet Estimate Hypochromasia Ovalocytes Morphology Comment Sodium Potassium Chloride Carbon Dioxide Anion Gap BUN Creatinine GFR Calculation BUN/Creatinine Ratio Glucose POC Glucose 210 H 82 49 L* Calculated Osmolality Calcium Magnesium B-Natriuretic Peptide 05/26/16 12:07 WBC RBC Hgb Hct MCV MCH MCHC RDW Plt Count MPV Neut % (Auto) Lymph % (Auto) [place] % (Auto) Eos % (Auto) Baso % (Auto) Neut # (Auto) Lymph # (Auto) [place] # (Auto) Eos # (Auto) Baso # (Auto) Total Counted Immature Gran % Nucleated RBC % Immature Gran # Segmented Neutrophils Band Neutrophils Lymphocytes Monocytes Eosinophils Basophils Nucleated RBCs # Platelet Estimate Hypochromasia Ovalocytes Morphology Comment Sodium Potassium Chloride Carbon Dioxide Anion Gap BUN Creatinine GFR Calculation BUN/Creatinine Ratio Glucose POC Glucose 152 H Calculated Osmolality Calcium Magnesium B-Natriuretic Peptide DS: Provider Date of admission: 05/16/16 10:42 Primary care physician: . 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 Timber Management Professor: Re-education 05/16/16 12:42 Consult to Pharmacy [CONS] Routine Reason for Pharmacy Consult: Adjust Meds Renal Funct 05/19/16 12:29 Consult to Physician [CONS] Routine Comment: Pancytopenia Consulting Provider: Carlos Metz 05/19/16 12:33 Consult to Physician [CONS] Routine Comment: Possible sepsis; antibiotic business management specialist Provider: Melida Hatch 05/20/16 10:36 Consult to Physician [CONS] Routine Comment: Atrial fibrillation with RVR Consulting Provider: Wilder Ramirez 05/20/16 11:24 Consult to Physical Therapy [CONS] Routine Reason for Physical Therapy: Evaluate and Treat Start Therapy: Today 05/24/16 11:29 Consult to Case Mgmt/Social Srvs [CONS] Routine Reason for Case Mgmt/Social Srvs: Discharge Planning Consult Comment: swing bed placement for continued recovery from pneumonia Discharging clinician: Cricket Hayes MD
--- NOTE | 2016-05-27 14:06 | Hospitalist Progress Note ---
Assessment and Plan (1) Pneumonia and influenza Status: Resolved Assessment and plan: The patient was admitted to the hospital with pneumonia of the left lung superimposed upon influenza. The patient will continue oral antibiotic care with Cipro and linezolid. Now off IV fluids and taking medications that she will have a swing bed. The patient's diet continue with controlled carbohydrates. We are monitoring the patient's glucometers and adjusting insulin as required. I will continue coordination with the oil field caser t and anticipate transfer to swing bed tomorrow. Current Visit: Yes (2) Influenza Status: Resolved Current Visit: Yes (3) Sepsis Status: Resolved Current Visit: Yes Hospitalist: Subjective Interval history: The patient continues incremental improvement of breathing. We gave diuretic yesterday and the patient has less shortness of breath today. Exam - Constitutional Vitals: Period Temp Pulse Resp BP Sys/Li Pulse Ox Last 24 Hr 96.6 F-99.2 F 63-93 16-20 86-114/43-59 91-99 Exam: Constitutional System: Mild distress with exertion. No tremulousness. Head: Normocephalic, atraumatic. Ears, Nose and Throat System: No evidence of Otitis or Mastoiditis. No epistaxis or discharge Eyes System: Pupils equal, round, and reactive. Extraocular muscles intact. Neck: Supple, without adenopathy, No jugular venous distention. No thyromegaly , neck mass, or prior surgery apparent. Respiratory System: Chest with rales in the mid lung melgar to auscultation. Cardiovascular System: Heart with regular rate and rhythm. No murmur. GI System: Abdomen soft, nontender. Normo active bowel sounds present. Musculoskeletal System: limbs with no pedal edema. Full distal pulses. Neurological System: No discernable sensory deficit. No aphasia Psychiatric System: Conversation is rational Results - Labs CBC & BMP: 05/27/16 04:34 05/27/16 04:34 Lab Results: I have reviewed the past 24 hour labs
--- NOTE | 2016-05-27 17:58 | Discharge Summary ---
Hospital Course - Hospital Course Hospital Course: The patient was admitted to the hospital with influenza and post influenza staphylococcal pneumonia. The patient has required extensive IV antibiotic therapy first in the intensive care unit and later on telemetry unit. The patient had fluid resuscitation due to hypotension at the time of arrival. She developed some pulmonary edema during her recovery phase which responded to diuresis. The patient had significant immunocompromise due to chemotherapy for non-Hodgkin's lymphoma. The patient has recovered her pneumonia and is now suffering with debility. She is ready to go to swing bed and continue therapy for her pneumonia with oral antibiotics and to pursue physical therapy to improve her level of function back to previous independence. She will be off Rituxan during the swing bed stay and return to treatment with Dr. Mendoza after dismissal from swing bed. - Time spent with patient Time with patient DS: Greater than 30 minutes Diagnosis - Discharge Diagnosis (1) Pneumonia and influenza Status: Resolved (2) Influenza Status: Resolved (3) Sepsis Status: Resolved Discharge Plan - Discharge Data Disposition: Swing Bed, Hos Based, [facility] Condition at Discharge: Stable Discharge Diet: heart healthy Activity: as per physical therapy - Discharge Medications New Ascorbic Acid Tab [Vitamin C Tab] 1,000 mg PO BID tablet Ciprofloxacin Tab [Cipro Tab] 500 mg PO Q12HR #10 tablet Clorazepate [Tranxene] 3.75 mg PO Q8H PRN #0 tablet PRN Reason: Anxiety Diltiazem Cd Cap [Cardizem CD] 360 mg PO DAILY capsule Insulin Regular [HumuLIN R] See Protocol SUBCUT Q6HR unit Linezolid Tab [Zyvox Tab] 600 mg PO Q12HR #14 tablet Metoprolol Tartrate Tab [Lopressor Tab] 50 mg PO BID tablet Albuterol/Ipratropium Neb [Duoneb] 3 ml RESP TX RT Q6H Insulin Glargine [Lantus] 16 unit SUBCUT BEDTIME unit Continue Folic Acid Tab 1 mg PO BID Ferrous Sulfate Tab [Feosol Original Tab] 325 mg PO TID Pioglitazone HCl 15 mg PO DAILY Multivitamin (Centrum) [Centrum Tab] 1 tablet PO DAILY Ibuprofen Tab [Motrin Tab] 600 mg PO Q6H PRN PRN Reason: Fever, Headache, Mild Pain Discontinued Fexofenadine [Ramya] 180 mg PO DAILY PRN PRN Reason: Allergy Symptoms Metformin HCl 1,000 mg PO BID Irbesartan 300 mg PO DAILY Canagliflozin [Invokana] 100 mg PO DAILY Metoprolol Succinate Xl [Toprol Xl] 50 mg PO DAILY - Follow Up or Referral - Forms/Instructions Exam - Constitutional Vitals: Period Temp Pulse Resp BP Sys/Li Pulse Ox Last 24 Hr 97.2 F-99.2 F 63-93 16-20 86-115/43-57 91-99 Discharge Results Procedures and tests throughout hospitalization: Pending Orders 05/20/16 01:55 Occult Blood, Stool Routine Labs on day of discharge: Labs from last 24 hours 05/27/16 05/27/16 05/27/16 11:27 07:26 06:33 WBC RBC Hgb Hct MCV MCH MCHC RDW Plt Count MPV Neut % (Auto) Lymph % (Auto) Gage % (Auto) Eos % (Auto) Baso % (Auto) Neut # (Auto) Lymph # (Auto) Gage # (Auto) Eos # (Auto) Baso # (Auto) Total Counted Immature Gran % Nucleated RBC % Immature Gran # Segmented Neutrophils Band Neutrophils Lymphocytes Monocytes Eosinophils Basophils Nucleated RBCs # Platelet Estimate Hypochromasia Ovalocytes Morphology Comment Sodium Potassium Chloride Carbon Dioxide Anion Gap BUN Creatinine GFR Calculation BUN/Creatinine Ratio Glucose POC Glucose 184 H 123 H 87 Calculated Osmolality Calcium Magnesium B-Natriuretic Peptide 05/27/16 05/27/16 05/27/16 04:34 04:34 04:34 WBC 5.6 RBC 2.91 L Hgb 9.0 L Hct 27.8 L MCV 95.5 MCH 31 MCHC 32.4 RDW 14.6 Plt Count 85 L D MPV 12.9 H Neut % (Auto) 59.0 Lymph % (Auto) 18.1 L Gage % (Auto) 4.6 Eos % (Auto) 3.0 Baso % (Auto) 0.7 Neut # (Auto) 3.3 Lymph # (Auto) 1.0 L Gage # (Auto) 0.3 Eos # (Auto) 0.2 Baso # (Auto) 0.0 Total Counted 100 Immature Gran % 14.6 Nucleated RBC % 0.4 Immature Gran # 0.82 Segmented Neutrophils 79 Band Neutrophils 1 Lymphocytes 11 L Monocytes 3 Eosinophils 4 Basophils 2.0 H Nucleated RBCs # 0.02 Platelet Estimate Decreased Hypochromasia Slight Ovalocytes Slight Morphology Comment Sodium 148 H Potassium 4.9 Chloride 109 H Carbon Dioxide 27 Anion Gap 16.9 H BUN 29 H Creatinine 1.20 H GFR Calculation 43 BUN/Creatinine Ratio 24.00 H Glucose 71 L POC Glucose Calculated Osmolality 297.3 Calcium 8.3 L Magnesium 1.8 B-Natriuretic Peptide 59 05/26/16 23:58 WBC RBC Hgb Hct MCV MCH MCHC RDW Plt Count MPV Neut % (Auto) Lymph % (Auto) Gage % (Auto) Eos % (Auto) Baso % (Auto) Neut # (Auto) Lymph # (Auto) Gage # (Auto) Eos # (Auto) Baso # (Auto) Total Counted Immature Gran % Nucleated RBC % Immature Gran # Segmented Neutrophils Band Neutrophils Lymphocytes Monocytes Eosinophils Basophils Nucleated RBCs # Platelet Estimate Hypochromasia Ovalocytes Morphology Comment Sodium Potassium Chloride Carbon Dioxide Anion Gap BUN Creatinine GFR Calculation BUN/Creatinine Ratio Glucose POC Glucose 210 H Calculated Osmolality Calcium Magnesium B-Natriuretic Peptide DS: Provider Date of admission: 05/16/16 10:42 Primary care physician: . 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
[2016-05-27] MEDS: INSULIN GLARGINE 100 UNIT/ML SUBCUT SCH (22:19)
[2016-05-28] MEDS: ALBUTEROL/IPRATROPIUM 3 ML NEB RESP TX SCH ×2 (00:42→07:36)
[2016-05-28] MEDS: INSULIN REGULAR 100 UNIT/ML SUBCUT SCH ×2 (01:09→06:44)
[2016-05-28] MEDS: LINEZOLID 600 MG TABLET PO SCH (10:22)
[2016-05-28] MEDS: ASCORBIC ACID 500 MG TABLET PO SCH (10:22)
[2016-05-28] MEDS: CIPROFLOXACIN 500 MG TABLET PO SCH (10:22)
[2016-05-28] MEDS: POTASSIUM CHLORIDE 20 MEQ TABLET PO SCH (10:22)
[2016-05-28] MEDS: METOPROLOL TARTRATE 50 MG TABLET PO SCH (10:22)
[2016-05-28] MEDS: DESITIN 4OZ/NYSTATIN 15 GRAM MIXTURE PASTE TOP SCH (10:23)
[2016-05-28] MEDS: DILTIAZEM CD 180 MG CAPSULE PO SCH (10:23)
[2016-05-28 10:26] VITALS: BP 115/59
== END 2016-05-28 11:01 | disposition swing bed (61) | DRG 871 ==
LOC: N.ED 10:21 → SUATTDRO 10:42 → N.EDINP 10:42 → N.CC 11:10 → N.TELEN 05-21 13:32
PROVIDERS: ADMIT Internal Medicine; ATTEND Internal Medicine